=== PATIENT | female | born 1960 | race Caucasian/White ===

== ENCOUNTER 2016-05-30 | Outpatient (CLI) | payer MEDICAID | END 2016-05-30 19:54 | disposition short-term general hospital (02) | DX: M54.5 Low back pain (principal) | CPT/HCPCS: A0425; A0427 ==

== ENCOUNTER 2016-07-08 10:22 | Outpatient (CLI) | payer MEDICAID | END 2016-07-08 10:23 | disposition home or self-care (01) | DX: M16.12 Unilateral primary osteoarthritis, left hip (principal) ==

== ENCOUNTER 2017-01-12 08:00 | Outpatient (CLI) | payer MEDICAID ==
[2017-01-14 11:31] LABS: TEST RESULT REPORT (())
== END 2017-01-12 08:01 | disposition home or self-care (01) ==
LOC: LAB.R 08:00
PROVIDERS: ATTEND Nurse Practitioner Gerontology
DX: R19.7 Diarrhea, unspecified (principal)
CPT/HCPCS: 81599; 83630; 87045; 87046; 87329; 87338; 87493

== ENCOUNTER 2017-02-01 13:43 | Outpatient (CLI) | payer MEDICAID ==
--- NOTE | 2017-02-01 15:41 | Ultrasound Report ---
COMPLETE ABDOMINAL ULTRASOUND: 02/01/2017 CLINICAL INDICATION: Pain, hematuria. TECHNIQUE: Real-time scanning was performed with telecommunications sales representative static images obtained. FINDINGS: The liver measures 14.8 cm. Hepatic echotexture appears normal. No intrahepatic biliary di latation is present. The common bile duct measures 6 mm. The gallbladder is normal, as is the pancrea s. The spleen measures 9.2 cm, and demonstrates normal echotexture. The kidneys are unremarkable, wit h the right measuring 10.9 cm and the left measuring 10.7 cm. The abdominal aorta is normal in calibe r. The inferior vena cava is unremarkable. No free fluid is present. IMPRESSION: NORMAL ABDOMINAL ULTRASOUND. JOB #: [id number] EXT JOB #:[id number]
== END 2017-02-01 13:44 | disposition home or self-care (01) ==
LOC: DI 13:43
PROVIDERS: ATTEND Nurse Practitioner Gerontology
DX: R10.9 Unspecified abdominal pain (principal)
CPT/HCPCS: 76700

== ENCOUNTER 2017-02-02 14:31 | Outpatient (CLI) | payer MEDICAID ==
--- NOTE | 2017-02-03 09:53 | Ultrasound Report ---
BLADDER ULTRASOUND: 02/03/2017 CLINICAL INDICATION: Pain, hematuria. TECHNIQUE: Real-time scanning was performed with reimbursement representative static images obtained. FINDINGS: Pre void, the urinary bladder measures 10.3 x 9.9 x 9.8 cm, yielding a prevoid volume of 5 26 mL. Bilateral ureteral jets are visualized. Postvoid residual is 10 mL. No focal bladder wall l esion is appreciated. IMPRESSION: NORMAL BLADDER ULTRASOUND. JOB #: [id number] EXT JOB #:
--- NOTE | 2017-02-03 14:01 | Ultrasound Report ---
PELVIC ULTRASOUND: 02/02/2017 CLINICAL INDICATION: Pain, hematuria. TECHNIQUE: Transabdominal pelvic ultrasound performed for global evaluation. Transvaginal pelvic ultr asound performed for detailed evaluation. Real-time scanning performed and static images obtained. COMPARISON: 08/03/2014. FINDINGS: The uterus is anteverted, measuring 6.5 x 3.3 x 3.0 cm. Fundal leiomyoma is stable, measur ing 3.6 cm in maximal diameter. A second, smaller leiomyoma is noted in the posterior myometrium, brett suring 1.3 x 0.9 x 0.8 cm. The endometrium is atrophic, measuring 1 mm. The right ovary was not confi dently identified on transabdominal or transvaginal scanning. The left ovary is unremarkable, measuri ng 1.3 x 1.0 x 0.9 cm. No free fluid is present. IMPRESSION: STABLE FUNDAL LEIOMYOMA. SMALLER POSTERIOR INTRAMURAL LEIOMYOMA. NO ADNEXAL MASS. JOB #: [id number] EXT JOB #:[id number]
== END 2017-02-02 14:32 | disposition home or self-care (01) ==
LOC: DI 14:31
PROVIDERS: ATTEND Nurse Practitioner Gerontology
DX: D25.9 Leiomyoma of uterus, unspecified (principal); R31.9 Hematuria, unspecified; N93.9 Abnormal uterine and vaginal bleeding, unspecified
CPT/HCPCS: 76770; 76830; 76856; 76857

== ENCOUNTER 2017-04-01 14:51 | Outpatient (CLI) | payer MEDICAID ==
[2017-04-01 19:40] LABS: HCT - HEMATOCRIT 44.3 % (37.0-47.0); MEAN CORPUSCULAR HEMOGLOBIN 30.8 pg (27.0-31.0); MEAN CORPUSCULAR HGB CONC 33.7 g/dL (32.0-36.0); MEAN CORPUSCULAR VOLUME 91.3 fL (81.0-99.0); MEAN PLATELET VOLUME 7.8 fL (7.9-10.8); RED BLOOD COUNT 4.86 10^6/uL (4.20-5.40); RED CELL DISTRIBUTION WIDTH 13.8 % (12.0-15.0); WHITE BLOOD COUNT 7.2 x10^3/uL (4.8-10.8)
== END 2017-04-01 14:52 | disposition home or self-care (01) ==
LOC: LAB.N 14:51
PROVIDERS: ATTEND Physician Assistant Medical
DX: M79.643 Pain in unspecified hand (principal); R22.33 Localized swelling, mass and lump, upper limb, bilateral
CPT/HCPCS: 36415; 85651; 86038; 86140; 86200; 86430

== ENCOUNTER 2017-05-11 12:47 | Outpatient (CLI) | payer MEDICAID ==
[2017-05-11] MEDS ORDERED: GADOBUTROL 7.5 MMOL/7.5 ML VIAL ONE (13:08)
[2017-05-11] MEDS ORDERED: GADOBUTROL 7.5 MMOL/7.5 ML VIAL IVP ONE (13:43)
--- NOTE | 2017-05-11 16:01 | MRI Report ---
EXAM: MRI LUMBAR SPINE WITHOUT AND WITH CONTRAST EXAM DATE: 05/11/2017 01:50 PM. CLINICAL HISTORY: Right-sided sciatica. Spondylosis. Previous lumbar spine surgery. Previous postoper ative infection. COMPARISONS: Lumbar spine MRI from 11/11/2010. TECHNIQUE: Multiplanar, multisequence T1-weighted and fluid-sensitive sequences of the lumbar spine f rom T12 to S1 before and after administration of intravenous contrast. Other: None. IV contrast: 7.5 cc Gadavist. FINDINGS: Spinal Cord: The conus terminates at T12-L1. The conus medullaris and cauda equina are unremarkable. Alignment: New grade 1 anterolisthesis at L4-L5 by approximately 6 mm. Bone Marrow: Five ury-pue-ktlnyqq lumbar vertebral bodies are assumed. There is an approximately 0.8 x 0.4 cm T2 hyperintense, T1 isointense to hypointense, enhancing focus at the right L4 superior vanna cular process which is new since the previous study. The previously seen 9 x 5 mm T2 hyperintense foc us within the left L5 superior articular process is no longer seen. No gross fractures. No evidence o f osteomyelitis. Disk Levels/Facets: L5-S1: Minimal disk bulge with posterior annular fissure. No bony stenosis. Moderate to severe narrow ing of the thecal sac at the L5-S1 and S1 levels and moderate narrowing of the thecal sac at the L5 l evel which is new since the previous study. L4-L5: Moderate disk space narrowing. Minimal disk bulge. Previous laminectomy and partial facetectom ies. Enhancing tissue at the operative site. No abscess. Mild to moderate right and moderate left for aminal stenoses. The degree of left foraminal stenosis has increased since the previous study. Modera te right facet joint effusion. L3-L4: Minimal disk bulge. Moderate ligamentum flavum thickening. Moderate facet arthropathy. Mild to moderate canal stenosis which has increased since the previous study. L2-L3: Unremarkable. L1-L2: Unremarkable. T12-L1: Unremarkable. Spinal Canal: Mild thickening and enhancement of the thecal sac at the L4, L5, and S1 levels. No epid ural abscess. No enhancing masses. Musculature: Normal. No edema, abnormal enhancement, or fatty atrophy. Other: The visualized retroperitoneum is unremarkable. IMPRESSION: 1. Grade 1 anterolisthesis at L4-L5 which is new since the previous study. 2. Postoperative changes at L4-L5 as described above. Enhancing tissue at the operative site. Mild to moderate right and moderate left foraminal stenoses. The degree of left foraminal stenosis has incre ased since the previous study. 3. Moderate to severe narrowing of the thecal sac at the L5-S1 and S1 levels and moderate narrowing o f the thecal sac at the L5 level which is new since the previous study. Mild to moderate canal stenos is at L3-L4 which has increased since the previous study. 4. Mild thickening and enhancement of the thecal sac from L4 to S1 which may be postoperative and/or inflammatory in etiology. 5. A 0.4 x 0.8 cm enhancing focus at the right L4 superior articular process which is new since the p revious study. This may represent an inflamed cyst. Comment: The following findings are so common in adults without low back pain that while we report th eir presence, they must be interpreted with caution and in the context of the clinical situation. (Re liz Benitez et al, Spine 2001) Prevalence of findings in patients without low back pain: Disk degeneration (any evidence): 92% Disk desiccation/T2 signal loss: 83% Disk height loss: 56% Disk bulge: 64% Disk protrusion: 32% Annular tear/high intensity zone: 38% [facility] Referring Provider Line: [phone] SITE ID: [id number]
== END 2017-05-11 12:48 | disposition home or self-care (01) ==
LOC: DI 12:47
PROVIDERS: ATTEND Family Medicine
DX: M47.896 Other spondylosis, lumbar region (principal); M51.36 Other intervertebral disc degeneration, lumbar region; M47.817 Spondylosis without myelopathy or radiculopathy, lumbosacral region; M43.16 Spondylolisthesis, lumbar region
CPT/HCPCS: 72158; A9585

== ENCOUNTER 2017-05-19 08:00 | Outpatient (CLI) | payer MEDICAID ==
[2017-05-19 19:24] LABS: CALCIUM 9.3 mg/dL (8.5-10.3); CREATININE 0.9 mg/dL (0.4-1.0)
== END 2017-05-19 08:01 ==
LOC: LAB.N 08:00
PROVIDERS: ATTEND Family Medicine
DX: M54.31 Sciatica, right side (principal)
CPT/HCPCS: 36415; 80048

== ENCOUNTER 2017-07-28 08:00 | Outpatient (CLI) | payer MEDICAID ==
[2017-07-28 12:36] LABS: CALCIUM 8.8 mg/dL (8.5-10.3); CREATININE 0.8 mg/dL (0.4-1.0)
[2017-07-28 12:45] LABS: BILIRUBIN,URINE NEGATIVE (NEGATIVE); GLUCOSE, URINE (UA) NEGATIVE (NEGATIVE); KETONES,URINE (UA) NEGATIVE (NEGATIVE); LEUKOCYTE ESTERASE, URINE NEGATIVE (NEGATIVE); NITRITE,URINE NEGATIVE (NEGATIVE); OCCULT BLOOD,URINE MODERATE (NEGATIVE); PROTEIN,URINE NEGATIVE (NEGATIVE); UROBILINOGEN,URINE 0.2 (NORMAL) E.U./dL (NORMAL)
[2017-07-28 13:03] LABS: BACTERIA,URINE Few /HPF (None Seen); CLARITY,URINE CLEAR (CLEAR); EPITHELIAL CELLS,UR FEW Transitional /HPF (<= Few); MUCUS,URINE Moderate Strands; SQUAMOUS EPITHELIAL CELL,UR FEW Squamous (<= Few)
== END 2017-07-28 08:01 ==
LOC: LAB.N 08:00
PROVIDERS: ATTEND Nurse Practitioner
DX: R11.0 Nausea (principal); R10.9 Unspecified abdominal pain; R19.7 Diarrhea, unspecified; R31.9 Hematuria, unspecified
CPT/HCPCS: 36415; 80048; 81001; 87086

== ENCOUNTER 2017-08-04 08:49 | Outpatient (CLI) | payer MEDICAID ==
[2017-08-04 13:18] LABS: CALCIUM 9.1 mg/dL (8.5-10.3); CREATININE 0.8 mg/dL (0.4-1.0)
== END 2017-08-04 08:50 | disposition home or self-care (01) ==
LOC: LAB.N 08:49
PROVIDERS: ATTEND Nurse Practitioner
DX: E87.6 Hypokalemia (principal); E87.1 Hypo-osmolality and hyponatremia
CPT/HCPCS: 36415; 80048

== ENCOUNTER 2017-08-06 09:15 | Outpatient (CLI) | payer MEDICAID ==
[2017-08-06] MEDS ORDERED: SINCALIDE 5 MCG VIAL ONE (10:27)
[2017-08-06] MEDS ORDERED: SINCALIDE IV ONE (11:00)
[2017-08-06] MEDS ORDERED: SODIUM CHLORIDE 0.9% IV ONE (11:00)
--- NOTE | 2017-08-06 13:32 | Nuclear Medicine Report ---
EXAM: HEPATOBILIARY SCAN WITH CCK/KINEVAC ADMINISTRATION EXAM DATE: 08/06/2017 12:15 PM. CLINICAL HISTORY: NAUSEA, DIARRHEA, ABDOMINAL PAIN, HEMATURIA. COMPARISON: 02/01/2017. TECHNIQUE: Following the intravenous administration of 5.3 mCi of Tc99m Mebrofenin, a hepatobiliary s can was done centered on the liver and gallbladder in multiple sequential images and projections. Following the intravenous administration of 1.41 mcg of CCK/ Kinevac over the course of approximately 60 minutes, dynamic imaging was done and the gallbladder ejection fraction was calculated. FINDINGS: Normal extraction of tracer from the blood pool indicating normal hepatocellular function. The liver size and shape is grossly within normal limits. There is activity visualized within the bile ducts, gallbladder, and small bowel within the first mitra r. With CCK administration, the gallbladder demonstrates an effective contraction. The gallbladder eject ion fraction is calculated to be 91%, well above the lower limit of normal of 38% for a 60-minute inj ection. No evidence of enteric reflux into the stomach. No significant collection of tracer remaining in the common bile duct by the end of the study. IMPRESSION: 1. Patent cystic duct. 2. Patent common bile duct. 3. Negative for acute or chronic cholecystitis. 4. No enterogastric bile reflux. 5. Gallbladder ejection fraction of 91%. [facility] Referring Provider Line: [phone] SITE ID: [id number]
== END 2017-08-06 09:16 | disposition home or self-care (01) ==
LOC: DI 09:15
PROVIDERS: ATTEND Nurse Practitioner
DX: R11.0 Nausea (principal); R19.7 Diarrhea, unspecified; R10.9 Unspecified abdominal pain; R31.9 Hematuria, unspecified
CPT/HCPCS: 78227; A9537; J7040

== ENCOUNTER 2017-12-02 16:36 | Outpatient (CLI) | payer MEDICAID ==
--- NOTE | 2017-12-03 15:32 | XRAY Report ---
Procedure Date: 12/02/2017 Accession Number: [id number] / [id number] Procedure: XR - Lumbar Spine Complete CPT Code: FULL RESULT: EXAM: Lumbar Spine Complete DATE: 12/02/2017 5:19 PM CLINICAL HISTORY: SPINAL STENOSIS OF LUMBAR REGION,UNSPECIFIED COMPARISON: MRI of the lumbar spine 05/11/2017. TECHNIQUE: 2 views. FINDINGS: Alignment: Interval increase in grade 1 anterolisthesis of L4 on L5, approximately 1.1 cm, when accounting for differences in technique. This is likely due to a pars defect at L4. Bones: Five gvq-rua-frqgpxh lumbar vertebral bodies are present. No fractures or bone lesions. Disks: Normal. Disk heights are maintained. Facets: Facet arthropathy at L4 and L5. Sacroiliac Joints: Unremarkable. Soft Tissues: Soft tissue calcification projecting over the pelvis is felt to most likely represent a fibroid. IMPRESSION: Interval progression of grade 1 anterolisthesis of L4 on L5 presumably due to spondylolysis. [facility]
== END 2017-12-02 16:37 | disposition home or self-care (01) ==
LOC: DI 16:36
PROVIDERS: ATTEND Neurological Surgery
DX: M48.061 Spinal stenosis, lumbar region without neurogenic claudication (principal); M43.06 Spondylolysis, lumbar region
CPT/HCPCS: 72110

== ENCOUNTER 2019-06-05 16:21 | Emergency (ER) | payer MEDICAID ==
[2019-06-05] MEDS ORDERED: KETOROLAC 60 MG/2 ML VIAL IM STA (17:01)
[2019-06-05] MEDS ORDERED: predniSONE 20 MG TABLET PO STA (17:02)
--- NOTE | 2019-06-05 17:05 | ED Physician Documentation ---
PD HPI BACK PAIN - Stated complaint Stated Complaint: Chronic Back Px - Chief complaint Chief Complaint: Back Pain - History obtained from History obtained from: Patient - History of Present Illness Timing - onset: Other (59-year-old woman with chronic back pain, she had a surgery a few years ago that left her even worse. It sounds like it was probably a laminectomy. She is in physical therapy for same and take gabapentin and meloxicam. Over the last few days her pain is been much worse than normal, in the low back with a shooting pain down the right buttock. She has chronic weakness and numbness of the legs, nothing new. No saddle anesthesia or fevers.) Review of Systems Constitutional: denies: Fever, Chills Throat: reports: Reviewed and negative Cardiac: reports: Reviewed and negative Respiratory: reports: Reviewed and negative PD PAST MEDICAL HISTORY - Present Medications Home Medications: Ambulatory Orders Medication Instructions Recorded Confirmed Hydrocodone/Acetaminophen 1 - 2 each PO Q6H PRN #14 tablet 06/05/19 [Hydrocodon-Acetaminophen 5-325] predniSONE [Deltasone] 20 mg PO [id number] #21 tab 06/05/19 - Allergies Allergies/Adverse Reactions: Allergies Allergy/AdvReac Type Severity Reaction Status Date / Time No Known Drug Allergies Allergy Verified 06/05/19 16:31 PD ED PE NORMAL - Vitals Vital signs reviewed: Yes - General General: Alert and oriented X 3, No acute distress - Abdomen Abdomen: Normal bowel sounds, Soft, Non tender - Back Back: No spinal TTP, Other (Mildly diminished sensation in left thigh compared to the right, equal reflexes throughout and strength throughout. Normal gait.) - Derm Derm: Normal color, Warm and dry - Extremities Extremities: No edema, No calf tenderness / cord - Neuro Neuro: Alert and oriented X 3, Normal speech Results - Vitals Vitals: Vital Signs - 24 hr 06/05/19 16:31 Temperature 36.8 C Heart Rate 73 Respiratory 14 Rate Blood Pressure 154/93 H O2 Saturation 98 Oxygen O2 Source Room air PD MEDICAL DECISION MAKING - ED course ED course: 59-year-old woman with chronic low back pain and exacerbation of same. She received Toradol and prednisone here and a prednisone taper and a few hy drocodone pending follow-up. She was sent over because she mentioned something to the physical therapist about not wanting to live anymore but she denies suicidal ideation or plan. Departure - Departure Disposition: 01 Home, Self Care Clinical Impression: Acute exacerbation of chronic low back pain Condition: Good Record reviewed to determine appropriate education?: Yes Instructions: ED Neck Back Pain General Prescriptions: Hydrocodone/Acetaminophen [Hydrocodon-Acetaminophen 5-325] 1 - 2 each PO Q6H PRN #14 tablet PRN Reason: pain predniSONE [Deltasone] 20 mg PO [id number] #21 tab Comments: If you would like to see a spine surgeon again, [address] Gallo at the [facility]. Phone number is [phone]. Call your doctor to arrange a follow-up appointment, make the next available appointment. In the interim, return anytime if worse or if new symptoms develop. Do not drink or drive while taking narcotic pain medication. Note that many narcotic pain relievers also contain Tylenol/acetaminophen. Please ensure that your total dose of acetaminophen from all sources does not exceed 3 g (3000 mg) per day. You may get constipated while on this medication. Take a stool softener such as Colace twice a day while you are on it. Also add an exut-lxu-gxwezia laxative such as senna or MiraLAX on any day that you do not have a bowel movement. If you received a narcotic pain medication or sedative while in the emergency department, do not drive for the next 24 hours.
[2019-06-05 17:37] VITALS: BP 160/95
== END 2019-06-05 17:43 | disposition home or self-care (01) ==
LOC: ED 16:21
DX: M54.5 Low back pain (principal); G89.29 Other chronic pain
CPT/HCPCS: 96372; 99283; 99284; J7512

== ENCOUNTER 2022-10-26 14:09 | Outpatient (CLI) | payer MEDICAID ==
--- NOTE | 2022-10-27 10:38 | XRAY Report ---
PROCEDURE: Foot 3 View RT INDICATIONS: CONTUSION OF RIGHT FOOT TECHNIQUE: 3 views of the foot were acquired. COMPARISON: None. FINDINGS: Bones: No fractures or dislocations. No suspicious bony lesions. Soft tissues: No suspicious soft tissue calcifications or masses. IMPRESSION: No acute osseous abnormality. If clinical symptoms persist, consider a follow-up exam in 7-10 days. Reviewed by: Maureen Nash MD on 10/27/2022 10:37 AM PDT Approved by: Maureen Nash MD on 10/27/2022 10:37 AM PDT Station ID: [id number]
== END 2022-10-26 23:59 | disposition home or self-care (01) ==
LOC: DI.N 14:09
PROVIDERS: ATTEND Physician Assistant Medical
DX: S90.31XA Contusion of right foot, initial encounter (principal)

== ENCOUNTER 2022-12-01 08:00 | Outpatient (CLI) | payer MEDICAID ==
[2022-12-01 18:09] LABS: BILIRUBIN,URINE NEGATIVE (NEGATIVE); GLUCOSE, URINE (UA) NEGATIVE (NEGATIVE); KETONES,URINE (UA) NEGATIVE (NEGATIVE); LEUKOCYTE ESTERASE, URINE NEGATIVE (NEGATIVE); NITRITE,URINE NEGATIVE (NEGATIVE); OCCULT BLOOD,URINE SMALL (NEGATIVE); PH,URINE 5.5 PH (5.0-7.5); PROTEIN,URINE NEGATIVE (NEGATIVE); UROBILINOGEN,URINE 0.2 (NORMAL) E.U./dL (NORMAL)
[2022-12-01 18:14] LABS: CLARITY,URINE CLEAR (CLEAR)
[2022-12-01 18:40] LABS: BACTERIA,URINE Rare /HPF (None Seen); SQUAMOUS EPITHELIAL CELL,UR RARE Squamous (<= Few); WBC,URINE 0-3 /HPF (0-5)
== END 2022-12-01 23:59 | disposition home or self-care (01) ==
LOC: LAB.WCP 08:00
PROVIDERS: ATTEND Nurse Practitioner Family
DX: R31.9 Hematuria, unspecified (principal); R35.0 Frequency of micturition
CPT/HCPCS: 81001; 87086

== ENCOUNTER 2022-12-03 23:22 | Outpatient (CLI) | payer MEDICAID | END 2022-12-03 23:59 | disposition critical access hospital (66) | LOC: EMS 23:22 | DX: R52 Pain, unspecified (principal); R25.2 Cramp and spasm; R20.2 Paresthesia of skin | CPT/HCPCS: A0425; A0429; A0999 ==

== ENCOUNTER 2022-12-04 00:12 | Emergency (ER) | payer MEDICAID, OTHER ==
--- OUTSIDE RECORDS SUMMARY | 2022-12-04 00:24 | EXTERNAL MEDICAL SUMMARY RPT | Continuity of Care Document ---
Author Name Unknown Address [address] [place] [address] Phone Organization [facility] Address [address] [place] [address] Phone Care Team Providers Care Director Immunology Name Role Phone Dandre Jay Unavailable Unavailable Allergies and Intolerances date description facility reaction severity (no date) Mild [facility] (no reaction) (no se verity) (no date) amitriptyline [facility] (no reaction) (no severity) (no date) aspirin [facility] (no reaction) (no se verity) (no date) codeine [facility] (no reaction) (no se verity) Medications date description facility 2022-11-23 00:00 Cephalexin [facility] Problems date description facility 2022-11-23 00:00 Urinary tract infection [facility] Procedures date description facility 2022-11-23 00:00 Computed tomography of head or brain without contrast [facility] Results/Labs test date facility value unit notes Social History date description facility 2022-11-23 00:00 Smokes tobacco daily (finding) [facility] Vital Signs date measurement value units 2022-11-23 00:00 BMI 23.7 kg/m2 2022-11-23 00:00 BP_diastolic 100 mmHg 2022-11-23 00:00 BP_systolic 160 mmHg 2022-11-23 00:00 heart_rate 115 /min 2022-11-23 00:00 height_metric 157.48 cm 2022-11-23 00:00 height_standard 62 in 2022-11-23 00:00 o2_saturation 98 % 2022-11-23 00:00 respiration_rate 18 /min 2022-11-23 00:00 temperature_metric 36.5 C 2022-11-23 00:00 temperature_standard 97.7 F 2022-11-23 00:00 weight_metric 58.87 kg 2022-11-23 00:00 weight_standard 129.79 lb
--- NOTE | 2022-12-04 01:35 | ED Physician Documentation ---
History of Present Illness - Stated complaint Stated Complaint: BODY PX - Chief complaint Chief Complaint: General - History obtained from History obtained from: Patient - Additonal information Additional information: HPI from patient. Patient is a rather scattered historian. Patient tells me she has pain. When I ask her where she has pain, she says she has numbness of both of her arms that has been going on for many weeks. I reiterate the question, which is where she is having pain. She says the numbness also includes burning of both the arms. She then says she also has pain in both of her legs. She says the leg pain is sciatica. I asked if it is 1 side or the other and she says it seems to be more on the right leg than the left. She denies any back pain. It is unclear after further discussion whether she has the diagnosis of sciatica or if she is making this diagnosis on her own. She does repeatedly say her diagnoses include fibromyalgia.She denies weakness, but says that due to pain being worse with movement, she has been less ambulatory over the past 3 days, but is able to get around with a walker. She says she takes gabapentin for her pain, as well as Aleve and meloxicam, which have been providing decreasing relief for the past few days.Patient says she was seen in urgent care clinic last week for UTI symptoms and was prescribed Keflex. Review of Systems Constitutional: reports: Reviewed and negative Cardiac: reports: Reviewed and negative Respiratory: reports: Reviewed and negative GI: reports: Reviewed and negative : denies: Dysuria, Frequency, Incontinent Musculoskeletal: reports: Extremity pain, Joint pain, Pain with weight bearing. denies: Neck pain, Back pain, Extremity swelling Neurologic: reports: Headache. denies: Focal weakness, Numbness PD PAST MEDICAL HISTORY - Past Medical History Past Medical History: Yes Psych: Depression, Anxiety Musculoskeletal: Osteoarthritis - Past Surgical History Past Surgical History: Yes Ortho: Spine surgery - Present Medications Home Medications: Ambulatory Orders Medication Instructions Recorded Confirmed Ascorbic Acid [Vitamin C] 1,000 mg PO DAILY 12/04/22 12/04/22 Baclofen [Lioresal] 10 mg PO BID #30 tablet 12/04/22 Gabapentin [Neurontin] 1,200 mg PO TID 12/04/22 12/04/22 HYDROcod/ACETAM 5/325 [Gage 5/325] 1 ea PO Q6H PRN #18 tablet 12/04/22 Meloxicam [Mobic] 7.5 mg PO BID 10 Days #20 tablet 12/04/22 Vitamin B Complex 1 each PO DAILY 12/04/22 12/04/22 - Allergies Allergies/Adverse Reactions: Allergies Allergy/AdvReac Type Severity Reaction Status Date / Time No Known Drug Allergies Allergy Verified 12/04/22 00:15 - Social History Does the pt smoke?: Yes Smoking Status: Current every day smoker - Immunizations Immunizations are current?: Yes PD ED PE NORMAL - Vitals Vital signs reviewed: Yes - General General: Alert and oriented X 3, Well developed/nourished, Other (Appears very anxious throughout history and physical. She is somewhat tangential and scattered on H&P, often requiring refocusing on the questions being asked.) - HEENT HEENT: PERRL, EOMI, Moist mucous membranes - Neck Neck: Supple, no meningeal sign - Cardiac Cardiac: RRR, No murmur - Respiratory Respiratory: No respiratory distress, Clear bilaterally - Abdomen Abdomen: Soft, Non tender, Non distended - Derm Derm: Normal color, Warm and dry, No rash - Extremities Extremities: No tenderness to palpate, Normal ROM s pain, No edema - Neuro Neuro: Alert and oriented X 3, forensic science examiner 2-12 intact, No motor deficit, No sensory deficit, Normal speech Eye Opening: Spontaneous Motor: Obeys Commands Verbal: Oriented GCS Score: 15 Results - Vitals Vitals: Oxygen O2 Source Room air - Labs Labs: Laboratory Tests 12/04/22 12/04/22 12/04/22 06:57 06:57 06:57 WBC 8.0 RBC 4.53 Hgb 13.4 Hct 41.7 MCV 92.1 MCH 29.6 MCHC 32.1 RDW 12.8 Plt Count 369 MPV 8.7 Neut # (Auto) 3.4 Lymph # (Auto) 3.6 H Riley # (Auto) 0.7 Eos # (Auto) 0.2 Baso # (Auto) 0.1 Absolute Nucleated RBC 0.00 Nucleated RBC % 0.0 Sodium 140 Potassium 4.2 Chloride 108 Carbon Dioxide 30 Anion Gap 2.0 L BUN 10 Creatinine 0.7 Estimated GFR (MDRD) 85 L Glucose 99 Calcium 9.4 Magnesium 1.7 Total Bilirubin 0.4 AST 15 ALT 15 Alkaline Phosphatase 63 Total Creatine Kinase 99 C-Reactive Protein Total Protein 6.0 L Albumin 3.6 Globulin 2.4 Albumin/Globulin Ratio 1.5 Lipase 37 12/04/22 06:57 WBC RBC Hgb Hct MCV MCH MCHC RDW Plt Count MPV Neut # (Auto) Lymph # (Auto) Riley # (Auto) Eos # (Auto) Baso # (Auto) Absolute Nucleated RBC Nucleated RBC % Sodium Potassium Chloride Carbon Dioxide Anion Gap BUN Creatinine Estimated GFR (MDRD) Glucose Calcium Magnesium Total Bilirubin AST ALT Alkaline Phosphatase Total Creatine Kinase C-Reactive Protein 0.5 Total Protein Albumin Globulin Albumin/Globulin Ratio Lipase PD Medical Decision Making - ED course Complexity details: reviewed old records, reviewed results, re-evaluated patient, considered differential, d/w patient ED course: given toradol 60mg IM and 2.0 mg PO lorazepam (for both muscle relaxant property and anxiolysis). She subsequently slept for several hours. Given that she seems to be describing exacerbation of ongoing/chronic discomfort, testing was not ordered until very late in stay when she woke up towards the end of my shift and was again complaining of severe pain that was diffuse throughout her body. My initial plan was to discharge patient when she woke up, but, given recurrence of symptoms. We next tried to get patient to stand at bedside, and it was questionable whether she was able to support her own weight (at times she appeared to be able to do so with the walker, and that at other times she was asking to be held up). Thus, care patient is turned over to the oncoming physician (Dr. Sow) at end of my shift, with some basic blood tests pending results. Departure - Departure Disposition: 01 Home, Self Care Clinical Impression: Acute exacerbation of chronic low back pain, Muscle pain, fibromyalgia Prescriptions: Baclofen [Lioresal] 10 mg PO BID #30 tablet Meloxicam [Mobic] 7.5 mg PO BID 10 Days #20 tablet HYDROcod/ACETAM 5/325 [Gage 5/325] 1 ea PO Q6H PRN #18 tablet PRN Reason: Pain Comments: Continue with your usual gabapentin. Stay well-hydrated. Add Tylenol 500 mg 4 times daily for pain. We can also add baclofen muscle relaxant and meloxicam anti-inflammatory as directed twice daily. This can help for both your low back pain/sciatic as well as the fibromyalgia. Add hydrocodone every 6 hours if needed for worse pain. Follow-up with your primary care regarding ordering/referrals for any other maryellen ts or treatments such as MRI of the low back, physical therapy, rheumatoid consults etc. that it sounds like our in progress. I sent your prescription to [facility] pharmacy. Activity as tolerated. Return to the ER as needed. I am prescribing a short course of narcotic pain medication for you. These are potentially dangerous and addictive medications that should be used carefully. These medications may constipate you. Take an vvrp-upi-jdczwhc stool softener such as docusate twice daily with plenty of water while taking these medications. If you go 24 hours without a bowel movement, take zaje-mwv-sbksdtm MiraLAX, per package instructions. Do not drink or drive while taking these medications. If you received narcotic or sedating medications while in the emergency department do not drive for 24 hours. Store this medication in a safe, secure place and out of reach of children. It is a violation of federal law to give or sell this medication to another person or to use in a manner other than prescribed. The ED will not refill narcotic prescriptions, including prescriptions lost or stolen. You can dispose of unwanted medications at the [facility]'s office or at several pharmacies such as [facility]. Forms: PCP List Discharge Date/Time: 12/04/22 12:17
[2022-12-04] MEDS ORDERED: KETOROLAC 60 MG/2 ML VIAL IM STA (01:47)
[2022-12-04] MEDS ORDERED: LORazepam 0.5 MG TABLET PO STA (01:48)
[2022-12-04 07:02] LABS: BASOPHILS # (AUTO) 0.1 10^3/uL (0.0-0.1); BASOPHILS % (AUTO) 1.3 %; EOSINOPHILS # (AUTO) 0.2 10^3/uL (0.0-0.7); EOSINOPHILS % (AUTO) 2.4 %; HCT - HEMATOCRIT 41.7 % (37.0-47.0); HGB - HEMOGLOBIN 13.4 g/dL (12.0-16.0); LYMPHOCYTES # (AUTO) 3.6 10^3/uL (1.5-3.5); LYMPHOCYTES % (AUTO) 45.6 %; MEAN CORPUSCULAR HEMOGLOBIN 29.6 pg (27.0-31.0); MEAN CORPUSCULAR HGB CONC 32.1 g/dL (32.0-36.0); MEAN CORPUSCULAR VOLUME 92.1 fL (81.0-99.0); MEAN PLATELET VOLUME 8.7 fL (7.9-10.8); MONOCYTES # (AUTO) 0.7 10^3/uL (0.0-1.0); MONOCYTES % (AUTO) 8.5 %; NEUTROPHILS # (AUTO) 3.4 10^3/uL (1.5-6.6); NEUTROPHILS % (AUTO) 41.9 %; PLT - PLATELET COUNT 369 10^3/uL (130-450); RED BLOOD COUNT 4.53 10^6/uL (4.20-5.40); RED CELL DISTRIBUTION WIDTH 12.8 % (12.0-15.0)
[2022-12-04 07:20] LABS: ALBUMIN 3.6 g/dL (3.2-5.5); ALBUMIN/GLOBULIN RATIO 1.5 (1.0-2.2); BILIRUBIN,TOTAL 0.4 mg/dL (0.2-1.0); CALCIUM 9.4 mg/dL (8.5-10.3); CREATININE 0.7 mg/dL (0.6-1.3); POTASSIUM 4.2 mmol/L (3.5-4.5)
[2022-12-04 07:54] LABS: MAGNESIUM 1.7 mg/dL (1.7-2.3)
--- NOTE | 2022-12-04 08:45 | XRAY Report ---
PROCEDURE: Hip w/Pelvis 2-3V RT INDICATIONS: fall, hip pain TECHNIQUE: AP pelvis with lateral view(s) of the right hip(s). COMPARISON: None. FINDINGS: Bones: No fractures or dislocations. No evidence of avascular necrosis of femoral head. Mild to mode rate bilateral hip joint osteoarthritic changes are seen. Degenerative disc disease in visualized low er lumbar spine is also noted. No suspicious bony lesions. Soft tissues: Likely large uterine fibroid is seen in lower pelvis. IMPRESSION: No acute right hip fracture or dislocation. No evidence of avascular necrosis. Mild to moderate bilat eral hip joint osteoarthritis. Degenerative disc disease in lower lumbar spine. Incidentally noted of calcified uterine fibroids. Reviewed by: Joseluis Mc MD on 12/04/2022 8:44 AM PDT Approved by: Joseluis Mc MD on 12/04/2022 8:44 AM PDT Station ID: [id number]
[2022-12-04] MEDS ORDERED: HYDROmorphone 1 MG/ML CARPUJECT IM STA (09:54)
[2022-12-04] MEDS ORDERED: dexAMETHasone 4 MG TABLET PO STA (09:54)
[2022-12-04] MEDS ORDERED: GABAPENTIN 400 MG CAPSULE PO STA (09:56)
--- NOTE | 2022-12-04 12:02 | ED Physician Documentation ---
ED Addendum - Addendum Addendum: 12/04/22 11:59 The patient was still having diffuse muscle pains and low back pain. Exam of her lower extremities showed normal patellar reflexes and symmetric range of motion without any noted focal weakness. She had symmetric sensation to touch and pinprick. Her partner/significant other did arrive in the department this morning and states her primary care has been progressing a work-up to include imaging of the low back and back specialist as well as rheumatology referral. These reportedly are referrals in process. At this point a do not feel the patient meets criteria for emergent MRI as there is no symptoms to suggest acute caudal symptoms. She has had increased pain in her back over her baseline. She also has had increased fibromyalgia symptoms. She was seen recently for a bladder infection has been on antibiotics. Otherwise no acute illness apparent. Unclear the exacerbation of her fibromyalgia. At this point however we can augment her medications. She takes gabapentin 1200 mg 3 times daily. We can add a muscle relaxant and anti- inflammatories. I prescribed baclofen and meloxicam. To that add regular Tylenol 4 times daily or hydrocodone/acetaminophen for worse pains. At this point the patient is having less pain and is sleeping and seems more comfortable. Disposition: The patient is discharged home in stable condition Diagnoses: 1. Acute exacerbation of chronic low back pain 2. Diffuse muscle pains 3. Fibromyalgia
[2022-12-04 12:18] VITALS: BP 127/95
== END 2022-12-04 12:17 | disposition home or self-care (01) ==
LOC: EDUNIT# → ED 00:12
DX: M54.50 Low back pain, unspecified (principal); G89.29 Other chronic pain; M79.7 Fibromyalgia; F17.200 Nicotine dependence, unspecified, uncomplicated
CPT/HCPCS: 36415; 73502; 80053; 82550; 83690; 83735; 85025; 86140; 96372; 99284; A9270; J1170; J8540

== ENCOUNTER 2022-12-08 09:58 | Outpatient (CLI) | payer MEDICAID ==
--- NOTE | 2022-12-08 15:31 | XRAY Report ---
PROCEDURE: Lumbar Spine 2 View INDICATIONS: LUMBAR PAIN TECHNIQUE: 2 views of the lumbar spine were acquired. 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 Interval progression of disc heigh t loss at L4-L5, now severe, with discogenic sclerosis present in the subjacent endplates, having dev eloped since the previous study. 7 mm of anterolisthesis of L4 on L5. On the previous study, the ante rolisthesis measuring approximately 14 mm. There is lower lumbar facet arthropathy. No vertebral body compression fractures. No suspicious bony lesions. Soft tissues: Overlying bowel gas pattern is normal. No suspicious soft tissue calcifications. Prom inent calcified uterine fibroids. IMPRESSION: 1. No acute bony abnormality. 2. Progression of degenerative disc disease at L4-L5. Grade 1 anterolisthesis of L4 on L5. Lower lumb ar facet arthropathy. Reviewed by: Edy Malhotra MD on 12/08/2022 3:30 PM PDT Approved by: Edy Malhotra MD on 12/08/2022 3:30 PM PDT Station ID: [id number]
--- NOTE | 2022-12-08 15:45 | XRAY Report ---
PROCEDURE: Cervical Spine 2 View INDICATIONS: CERVICAL PAIN TECHNIQUE: 3 view(s) of the cervical spine were acquired. COMPARISON: None. FINDINGS: Bones: No fractures or dislocations to the T1 level. The lateral masses of C1 appear intact on the odontoid view. No suspicious bony lesions. Severe cervical spondylosis with prominent bilateral face t arthropathy, left greater than right. There is trace degenerative anterolisthesis of C3 on C4 and C 4 on C5. Uncovertebral joint osteophytes are suspected. Soft tissues: No prevertebral soft tissue swelling. IMPRESSION: Severe cervical spondylosis. Reviewed by: Edy Malhotra MD on 12/08/2022 3:43 PM PDT Approved by: Edy Malhotra MD on 12/08/2022 3:43 PM PDT Station ID: [id number]
== END 2022-12-08 09:59 | disposition home or self-care (01) ==
LOC: DI 09:58
PROVIDERS: ATTEND Internal Medicine Cardiovascular Disease
DX: M51.36 Other intervertebral disc degeneration, lumbar region (principal); M43.16 Spondylolisthesis, lumbar region; M47.812 Spondylosis without myelopathy or radiculopathy, cervical region

== ENCOUNTER 2022-12-14 11:53 | Outpatient (CLI) | payer MEDICAID | END 2022-12-14 23:59 | disposition short-term general hospital (02) | LOC: EMS 11:53 | DX: M54.50 Low back pain, unspecified (principal); G89.29 Other chronic pain | CPT/HCPCS: A0425; A0429; A0999 ==

== ENCOUNTER 2023-03-19 19:15 | Outpatient (CLI) | payer MEDICAID | END 2023-03-19 23:59 | disposition short-term general hospital (02) | LOC: EMS 19:15 | DX: R10.9 Unspecified abdominal pain (principal); M54.9 Dorsalgia, unspecified; T40.2X6A Underdosing of other opioids, initial encounter; Z91.138 Patient's unintentional underdosing of medication regimen for other reason | CPT/HCPCS: A0425; A0429; A0999 ==

== ENCOUNTER 2023-03-24 21:15 | Outpatient (CLI) | payer MEDICAID | END 2023-03-24 23:59 | disposition critical access hospital (66) | LOC: EMS 21:15 | DX: R06.00 Dyspnea, unspecified (principal); F41.9 Anxiety disorder, unspecified; I10 Essential (primary) hypertension | CPT/HCPCS: A0425; A0429; A0999 ==

== ENCOUNTER 2023-03-24 21:36 | Emergency (ER) | payer MEDICAID ==
--- NOTE | 2023-03-24 21:47 | ED Physician Documentation ---
PD HPI DYSPNEA - Stated complaint Stated Complaint: SOA - Chief complaint Chief Complaint: Resp - History obtained from History obtained from: Patient - Additional information Additional information: Patient is a 62-year-old female presenting for evaluation of feeling shortness of air since this evening. Patient states that she smokes cannabis and was about to use her vape. She does use tobacco. She started feeling short of air. She does have an albuterol inhaler and tried using this to see if it would help but it did not seem like it gave her any relief. Patient denies any recent illness with fever or cough. She did have lower back surgery 1 month ago and is continuing on oxycodone. She denies pain in the chest. No abdominal symptoms. Denies leg swelling or pain. Does not take any blood thinners. She does report feeling anxious and EMS put her on oxygen for comfort due to her anxiety but she was satting 100% on room air for them. Review of Systems Constitutional: denies: Fever Cardiac: denies: Chest pain / pressure Respiratory: reports: Dyspnea. denies: Cough GI: denies: Abdominal Pain Musculoskeletal: denies: Extremity swelling PD PAST MEDICAL HISTORY - Past Medical History Neuro: Peripheral neuropathy Psych: Depression, Anxiety Musculoskeletal: Osteoarthritis - Past Surgical History Past Surgical History: Yes Ortho: Spine surgery - Present Medications Home Medications: Ambulatory Orders Medication Instructions Recorded Confirmed Ascorbic Acid [Vitamin C] 1,000 mg PO DAILY 12/04/22 12/09/22 Baclofen [Lioresal] 10 mg PO BID #30 tablet 12/04/22 12/09/22 Gabapentin [Neurontin] 1,200 mg PO TID 12/04/22 12/09/22 HYDROcod/ACETAM 5/325 [[place] 5/325] 1 ea PO Q6H PRN #18 tablet 12/04/22 12/09/22 Meloxicam [Mobic] 7.5 mg PO BID 10 Days #20 tablet 12/04/22 12/09/22 Vitamin B Complex 1 each PO DAILY 12/04/22 12/09/22 dexAMETHasone [Decadron] 4 mg PO DAILY #7 tablet 12/09/22 tiZANidine [Zanaflex] 4 mg PO Q8H PRN #25 tablet 12/09/22 Apixaban [Eliquis] 10 mg ORAL BID 30 Days #74 tablet 03/25/23 - Allergies Allergies/Adverse Reactions: Allergies Allergy/AdvReac Type Severity Reaction Status Date / Time No Known Drug Allergies Allergy Verified 12/04/22 00:15 - Social History Does the pt smoke?: Yes Smoking Status: Current every day smoker - Immunizations Immunizations are current?: Yes PD ED PE NORMAL - General General: Alert and oriented X 3, No acute distress, Well developed/nourished - HEENT HEENT: Atraumatic, Moist mucous membranes, Pharynx benign - Neck Neck: Supple, no meningeal sign - Cardiac Cardiac: RRR, No murmur, Strong equal pulses - Respiratory Respiratory: No respiratory distress, Clear bilaterally - Abdomen Abdomen: Normal bowel sounds, Soft, Non tender, Non distended - Derm Derm: Warm and dry - Extremities Extremities: No edema, No calf tenderness / cord - Neuro Neuro: Normal speech Results - Vitals Vitals: Vital Signs - 24 hr 03/24/23 03/25/23 21:35 00:31 Temperature 36.6 C Heart Rate 84 78 Respiratory 23 18 Rate Blood Pressure 175/97 H 167/105 H O2 Saturation 99 98 Oxygen O2 Source Room air - EKG (time done) 1 EKG releavant findings:: EKG personally interpreted by author of this note. Relevant findings are: Rate 76, normal sinus rhythm, no STEMI - Labs Labs: Laboratory Tests 03/24/23 03/24/23 03/24/23 21:56 21:56 21:56 WBC 7.0 RBC 4.44 Hgb 12.8 Hct 40.7 MCV 91.7 MCH 28.8 MCHC 31.4 L RDW 13.4 Plt Count 351 MPV 8.4 Neut # (Auto) 3.2 Lymph # (Auto) 2.7 [place] # (Auto) 0.6 Eos # (Auto) 0.4 Baso # (Auto) 0.1 Absolute Nucleated RBC 0.00 Nucleated RBC % 0.0 D-Dimer 342.8 H Sodium 137 Potassium 4.0 Chloride 103 Carbon Dioxide 27 Anion Gap 7.0 BUN 10 Creatinine 0.6 Estimated GFR (MDRD) 101 Glucose 102 Calcium 9.2 Total Bilirubin 0.3 AST 12 ALT 7 L Alkaline Phosphatase 83 Troponin I High Sens 4.4 B-Natriuretic Peptide Total Protein 6.3 L Albumin 3.8 Globulin 2.5 Albumin/Globulin Ratio 1.5 Nasal Adenovirus (PCR) Nasal B. parapertussis DNA (PCR) Nasal Coronavir 229E PCR Nasal Coronavir HKU1 PCR Nasal Coronavir NL63 PCR Nasal Coronavir OC43 PCR Nasal Enterovir/Rhinovir PCR Nasal Influenza B PCR Nasal Influenza A PCR Nasal Parainfluen 1 PCR Nasal Parainfluen 2 PCR Nasal Parainfluen 3 PCR Nasal Parainfluen 4 PCR Nasal RSV (PCR) Nasal B.pertussis DNA PCR Nasal C.pneumoniae (PCR) Ariel Human Metapneumo PCR Nasal M.pneumoniae (PCR) Nasal SARS-CoV-2 (PCR) 03/24/23 03/24/23 21:56 22:12 WBC RBC Hgb Hct MCV MCH MCHC RDW Plt Count MPV Neut # (Auto) Lymph # (Auto) [place] # (Auto) Eos # (Auto) Baso # (Auto) Absolute Nucleated RBC Nucleated RBC % D-Dimer Sodium Potassium Chloride Carbon Dioxide Anion Gap BUN Creatinine Estimated GFR (MDRD) Glucose Calcium Total Bilirubin AST ALT Alkaline Phosphatase Troponin I High Sens B-Natriuretic Peptide 52 Total Protein Albumin Globulin Albumin/Globulin Ratio Nasal Adenovirus (PCR) NOT DETECTED Nasal B. parapertussis DNA (PCR) NOT DETECTED Nasal Coronavir 229E PCR NOT DETECTED Nasal Coronavir HKU1 PCR NOT DETECTED Nasal Coronavir NL63 PCR NOT DETECTED Nasal Coronavir OC43 PCR NOT DETECTED Nasal Enterovir/Rhinovir PCR NOT DETECTED Nasal Influenza B PCR NOT DETECTED Nasal Influenza A PCR NOT DETECTED Nasal Parainfluen 1 PCR NOT DETECTED Nasal Parainfluen 2 PCR NOT DETECTED Nasal Parainfluen 3 PCR NOT DETECTED Nasal Parainfluen 4 PCR NOT DETECTED Nasal RSV (PCR) NOT DETECTED Nasal B.pertussis DNA PCR NOT DETECTED Nasal C.pneumoniae (PCR) NOT DETECTED Ariel Human Metapneumo PCR NOT DETECTED Nasal M.pneumoniae (PCR) NOT DETECTED Nasal SARS-CoV-2 (PCR) NOT DETECTED PD Medical Decision Making - ED course Complexity details: reviewed results, re-evaluated patient, d/w patient ED course: Patient is a 62-year-old female presenting for evaluation of shortness of air starting tonight. She reports feeling heaviness with her breathing. No fever, cough. No chest pain. Did have back surgery about 1 month ago. Vital signs are stable and lung sounds are clear. Does smoke tobacco. EKG reviewed and do not see signs of acute ischemia. CBC, chemistries, troponin, BNP and D-dimer obtained and reviewed. D-dimer is slightly elevated even with age adjustment for the patient. X-ray of the chest which I reviewed is unremarkable for consolidation or effusion. CT angio of the chest was obtained to evaluate for pulmonary embolism. It is positive for bilateral segmental PEs with no signs of right heart strain. PESI score is 63. This places her in a very low risk category. Discussed anticoagulation with the patient and she is agreeable to this. We reviewed risks and benefits. She does not appear to have any co ntraindications to anticoagulation at this time. We will start her on Eliquis. Patient is aware that she needs to have follow-up with her primary care provider regarding our finding tonight as well as continuation of her anticoagulation. Patient is also counseled on concerning symptoms to return for. 2238 - Patient reports that she is feeling better. Reviewed work-up thus far including slightly elevated D-dimer even with age adjustment. Understands plan for CT angio of the chest to evaluate for pulmonary embolism as she has had recent surgery. She states that her breathing feels back to her baseline. Departure - Departure Disposition: 01 Home, Self Care Clinical Impression: Bilateral pulmonary embolism Condition: Stable Instructions: Embolism Pulmonary Dc Follow-Up: Kayce Ortiz ARNP [Primary Care Provider] - Prescriptions: Apixaban [Eliquis] 10 mg ORAL BID 30 Days #74 tablet Comments: On your testing today we found that you have blood clots present in both lungs. This is likely was a result of your recent surgery as having surgery and being less mobile does put you at increased risk for developing clots. Fortunately at this time it is not affecting your heart or your vital signs. I am starting you on a blood thinner called Eliquis and I have sent this prescription to [facility] in [place]. You will take it twice a day. Because all of the local area pharmacies are closed tomorrow for the I have given you 1 dose while you are here and have also sent you home with 1 dose that you should take around dinnertime on 03/25/2023 (). You do need to have close follow-up with your primary care provider to determine how long you need to be on this blood thinner. IMPRESSION: Bilateral segmental pulmonary emboli without right heart strain. Forms: PCP List Discharge Date/Time: 03/25/23 00:45
[2023-03-24 22:03] LABS: BASOPHILS # (AUTO) 0.1 10^3/uL (0.0-0.1); EOSINOPHILS # (AUTO) 0.4 10^3/uL (0.0-0.7); EOSINOPHILS % (AUTO) 5.8 %; HCT - HEMATOCRIT 40.7 % (37.0-47.0); HGB - HEMOGLOBIN 12.8 g/dL (12.0-16.0); LYMPHOCYTES # (AUTO) 2.7 10^3/uL (1.5-3.5); LYMPHOCYTES % (AUTO) 39.1 %; MEAN CORPUSCULAR HEMOGLOBIN 28.8 pg (27.0-31.0); MEAN CORPUSCULAR HGB CONC 31.4 g/dL (32.0-36.0); MEAN CORPUSCULAR VOLUME 91.7 fL (81.0-99.0); MEAN PLATELET VOLUME 8.4 fL (7.9-10.8); MONOCYTES # (AUTO) 0.6 10^3/uL (0.0-1.0); MONOCYTES % (AUTO) 7.9 %; NEUTROPHILS # (AUTO) 3.2 10^3/uL (1.5-6.6); NEUTROPHILS % (AUTO) 45.9 %; PLT - PLATELET COUNT 351 10^3/uL (130-450); RED BLOOD COUNT 4.44 10^6/uL (4.20-5.40); RED CELL DISTRIBUTION WIDTH 13.4 % (12.0-15.0)
--- NOTE | 2023-03-24 22:03 | XRAY Report ---
PROCEDURE: Chest 1 View X-Ray INDICATIONS: SOA TECHNIQUE: One view of the chest was acquired. COMPARISON: None. FINDINGS: Surgical changes and devices: None. Lungs and pleura: No pleural effusions or pneumothorax. Lungs are clear. Mediastinum: Mediastinal contours appear normal. Heart size is enlarged. Bones and chest wall: No suspicious bony lesions. Overlying soft tissues appear unremarkable. IMPRESSION: No acute pulmonary process. Reviewed by: Magalie Gleason MD on 03/24/2023 10:02 PM [facility] Approved by: Magalie Gleason MD on 03/24/2023 10:02 PM [facility] Station ID: [id number]
[2023-03-24 22:14] LABS: ALBUMIN 3.8 g/dL (3.2-5.5); ALBUMIN/GLOBULIN RATIO 1.5 (1.0-2.2); BILIRUBIN,TOTAL 0.3 mg/dL (0.2-1.0); CALCIUM 9.2 mg/dL (8.5-10.3); CREATININE 0.6 mg/dL (0.6-1.3); TOTAL PROTEIN 6.3 g/dL (6.4-8.9)
[2023-03-24 22:22] LABS: TROPONIN I HIGH SENSITIVITY 4.4 ng/L (2.3-14.8)
[2023-03-24] MEDS ORDERED: iohexoL-300 100 ML VIAL IVP ONE (23:52)
[2023-03-25 00:14] LABS: B. PARAPERTUSSIS- RESP PCR PAN NOT DETECTED; B. PERTUSSIS- RESP PCR PANEL NOT DETECTED; C. PNEUMONIAE- RESP PCR PANEL NOT DETECTED; CORONAVIRUS 229E-RESP PCR NOT DETECTED; CORONAVIRUS HKU1-RESP PCR NOT DETECTED; CORONAVIRUS NL63-RESP PCR NOT DETECTED; CORONAVIRUS OC43-RESP PCR NOT DETECTED; HUMAN METAPNEUMOVIRUS NOT DETECTED; INFLUENZA A- RESP PCR PANEL NOT DETECTED; INFLUENZA B - RESP PCR PANEL NOT DETECTED; M. PNEUMONIAE- RESP PCR PANEL NOT DETECTED; PARAINFLUENZA VIRUS 1 NOT DETECTED; PARAINFLUENZA VIRUS 2 NOT DETECTED; PARAINFLUENZA VIRUS 3 NOT DETECTED; PARAINFLUENZA VIRUS 4 NOT DETECTED; RHINOVIRUS/ENTEROVIRUS NOT DETECTED; RSV- RESP PCR PANEL NOT DETECTED; SARS-CoV-2 -RESP PCR PANEL NOT DETECTED
--- NOTE | 2023-03-25 00:14 | CT Report ---
PROCEDURE: ANGIO CHEST W/WO INDICATIONS: SOA/recent surgery/abnormal ddimer CONTRAST: Omni 300 80ml TECHNIQUE: After the administration of intravenous contrast, 2 mm axial images were acquired from the pulmonary apices to the posterior costophrenic angles during the arterial phase. In addition, 1 mm lung kernel and 5 mm soft tissue kernel reconstructions were performed. 3-dimensional coronal oblique maximum int ensity projection (MIP) reformats, 8 mm axial MIP, and 5 mm coronal and sagittal MPR reformats were t hen performed through the thorax. For radiation dose reduction, the following was used: automated exp osure control, adjustment of mA and/or kV according to patient size. COMPARISON: Chest x-ray 03/24/2023 FINDINGS: Image quality: Excellent. Large vessels: Scattered areas of segmental pulmonary artery filling defects are identified. Extendin g into upper and lower lobes. No central pulmonary embolism. No heart strain. Lungs and pleura: No consolidation. No pleural effusions. No pneumothorax. No suspicious pulmonary n odules which require follow up. Mediastinum: Heart size is normal. No pericardial effusion. No large vessel abnormality. No mediastin al adenopathy by size criteria. Chest wall and lower neck: Thyroid is unremarkable. No axillary or supraclavicular adenopathy by size . Bones: No aggressive osseous abnormality. Upper Abdomen: Unremarkable. IMPRESSION: Bilateral segmental pulmonary emboli without right heart strain. The above findings were discussed with Dr. Gideon Rios on 03/25/2023 at 12:10 AM. Reviewed by: Magalie Gleason MD on 03/25/2023 12:13 AM PST Approved by: Magalie Gleason MD on 03/25/2023 12:13 AM PST Station ID: [id number]
[2023-03-25] MEDS ORDERED: APIXABAN 5 MG TABLET PO STA ×2 (00:21)
[2023-03-25 00:39] VITALS: BP 167/105; O2SAT 98
== END 2023-03-25 00:45 | disposition home or self-care (01) ==
LOC: EDUNIT# → ED 21:36
DX: I26.99 Other pulmonary embolism without acute cor pulmonale (principal); F17.200 Nicotine dependence, unspecified, uncomplicated; Z20.822 Contact with and (suspected) exposure to COVID-19
CPT/HCPCS: 36415; 71045; 71275; 80053; 83880; 84484; 85025; 85379; 87633; 93005; 99284; A9270; Q9967

== ENCOUNTER 2023-04-07 14:28 | Outpatient (CLI) | payer MEDICAID | END 2023-04-07 14:29 | disposition critical access hospital (66) | LOC: EMS 14:28 | DX: R07.89 Other chest pain (principal); M54.6 Pain in thoracic spine | CPT/HCPCS: A0425; A0429; A0999 ==

== ENCOUNTER 2023-04-07 14:50 | Emergency (ER) | payer MEDICAID ==
[2023-04-07] MEDS ORDERED: MORPHINE 2 MG/ML CARPUJECT IVP STA (15:09)
[2023-04-07] MEDS ORDERED: IPRATROPIUM/ALBUTEROL 3 ML NEB INH STA (15:09)
[2023-04-07 15:14] VITALS: O2SAT 97
--- NOTE | 2023-04-07 15:17 | ED Physician Documentation ---
History of Present Illness - Stated complaint Stated Complaint: CHEST/BACK PX - Chief complaint Chief Complaint: Cardiac - History obtained from History obtained from: Patient, Family, EMS - History of Present Illness Pain level max: 7 Pain level now: 6 - Additonal information Additional information: Patient is a 62-year-old female who on March 24 had bilateral segmental pulmonary emboli with no right heart strain. She has been on Eliquis. She had a recent back surgery as well. She went to her doctor's office today for a follow-up appointment after her back surgery and had not taken her pain meds for approximately 9 hours. She usually takes them every 4-5 hours. She states that her back started to hurt and she started to become anxious. She states that her doctor called an ambulance and she was brought here for evaluation. Denies any chest pain. She says she does not feel very short of breath. Does use albuterol at home. She does smoke cannabis, vape and tobacco. She states that she has been taking her Eliquis as prescribed. Review of Systems Constitutional: denies: Fever, Chills Nose: denies: Rhinorrhea / runny nose, Congestion Throat: denies: Sore throat Cardiac: denies: Palpitations Respiratory: reports: Wheezing (mild). denies: Cough GI: denies: Abdominal Pain, Nausea, Vomiting, Diarrhea Skin: denies: Rash Musculoskeletal: denies: Neck pain, Back pain Neurologic: denies: Headache PD PAST MEDICAL HISTORY - Past Medical History Past Medical History: Yes Respiratory: Asthma Neuro: Peripheral neuropathy Psych: Depression, Anxiety Musculoskeletal: Osteoarthritis Other Past Medical History: Bilateral PE - Past Surgical History Past Surgical History: Yes Ortho: Spine surgery - Present Medications Home Medications: Ambulatory Orders Medication Instructions Recorded Confirmed Ascorbic Acid [Vitamin C] 1,000 mg PO DAILY 12/04/22 12/09/22 Baclofen [Lioresal] 10 mg PO BID #30 tablet 12/04/22 12/09/22 Gabapentin [Neurontin] 1,200 mg PO TID 12/04/22 12/09/22 HYDROcod/ACETAM 5/325 [[place] 5/325] 1 ea PO Q6H PRN #18 tablet 12/04/22 12/09/22 Meloxicam [Mobic] 7.5 mg PO BID 10 Days #20 tablet 12/04/22 12/09/22 Vitamin B Complex 1 each PO DAILY 12/04/22 12/09/22 dexAMETHasone [Decadron] 4 mg PO DAILY #7 tablet 12/09/22 tiZANidine [Zanaflex] 4 mg PO Q8H PRN #25 tablet 12/09/22 Apixaban [Eliquis] 10 mg ORAL BID 30 Days #74 tablet 03/25/23 - Allergies Allergies/Adverse Reactions: Allergies Allergy/AdvReac Type Severity Reaction Status Date / Time No Known Drug Allergies Allergy Verified 12/04/22 00:15 - Social History Does the pt smoke?: Yes Smoking Status: Current every day smoker Does the pt drink ETOH?: No Does the pt have substance abuse?: No - Immunizations Immunizations are current?: Yes - POLST Patient has POLST: No PD ED PE NORMAL - Vitals Vital signs reviewed: Yes - General General: Alert and oriented X 3, No acute distress - HEENT HEENT: PERRL, Moist mucous membranes - Neck Neck: Supple, no meningeal sign - Cardiac Cardiac: RRR, Strong equal pulses - Respiratory Respiratory: No respiratory distress, Other (Mild wheezing bilaterally) - Abdomen Abdomen: Soft, Non tender, Non distended, No organomegaly - Back Back: No CVA TTP, No spinal TTP - Derm Derm: Warm and dry - Extremities Extremities: No edema, No calf tenderness / cord - Neuro Neuro: Alert and oriented X 3 - Psych Psych: Normal mood, Normal affect Results - Vitals Vitals: Vital Signs - 24 hr 04/07/23 04/07/23 04/07/23 15:04 15:24 15:46 Temperature 36.4 C L Heart Rate 80 85 93 Respiratory 15 16 16 Rate Blood Pressure 162/92 H 162/82 H O2 Saturation 97 97 If not protocol 97 : Oxygen Flow, liters/minute 04/07/23 04/07/23 16:13 16:36 Temperature Heart Rate 91 Respiratory 16 17 Rate Blood Pressure 156/93 H O2 Saturation 97 If not protocol : Oxygen Flow, liters/minute Oxygen O2 Source Room air PD Medical Decision Making - ED course Complexity details: reviewed results, re-evaluated patient, considered differential, d/w patient ED course: Patient with back pain after her recent spinal surgery and did not take her medications as usual. Usually on oxycodone every 4-5 hours, has been almost 9 hours. She has no tachycardia, no tachypnea, no pleuritic chest pain. No recurrent shortness of breath. Symptoms resolved with 4 mg of morphine and a DuoNeb treatment. No indication for repeat CT scan at this time. Patient had scattered segmental pulmonary emboli on her recent CT scan. Will continue the Eliquis at home. No chest pain. Patient and family counseled regarding signs and symptoms for which I believe and urgent re-evaluation would be necessary. Patient with good understanding of and agreement to plan and is comfortable going home at this time This document was made in part using voice recognition software. While efforts are made to proofread this document, sound alike and grammatical errors may occur. Departure - Departure Disposition: Home, Self Care Clinical Impression: Acute exacerbation of chronic low back pain COPD (chronic obstructive pulmonary disease) Qualifiers: COPD type: unspecified COPD Qualified Code(s): J44.9 - Chronic obstructive pulmonary disease, unspecified Condition: Good Instructions: ED Back Care Tips, ED COPD Flare Follow-Up: Kayce Ortiz ARNP [Primary Care Provider] - Comments: Please make sure you are using your nebulizer at home. Please continue to use your medication for your low back pain. Please follow-up with your doctor for further care. Please continue your Eliquis for your recent PE diagnosis. If you develop chest pain, severe shortness of breath or other new or worrisome symptoms, please return for repeat evaluation. Forms: PCP List Discharge Date/Time: 04/07/23 16:37
[2023-04-07 16:19] VITALS: BP 156/93
== END 2023-04-07 16:37 | disposition home or self-care (01) ==
LOC: EDUNIT# → ED 14:50
DX: M54.50 Low back pain, unspecified (principal); J44.9 Chronic obstructive pulmonary disease, unspecified; F17.200 Nicotine dependence, unspecified, uncomplicated
CPT/HCPCS: 94640; 96374; 99284

== ENCOUNTER 2023-04-28 08:00 | Outpatient (CLI) | payer MEDICAID ==
[2023-04-29 11:57] LABS: BILIRUBIN,URINE NEGATIVE (NEGATIVE); GLUCOSE, URINE (UA) NEGATIVE (NEGATIVE); KETONES,URINE (UA) NEGATIVE (NEGATIVE); LEUKOCYTE ESTERASE, URINE NEGATIVE (NEGATIVE); NITRITE,URINE NEGATIVE (NEGATIVE); OCCULT BLOOD,URINE LARGE (NEGATIVE); PH,URINE 7.5 PH (5.0-7.5); PROTEIN,URINE NEGATIVE (NEGATIVE); UROBILINOGEN,URINE 0.2 (NORMAL) E.U./dL (NORMAL)
[2023-04-29 12:14] LABS: CLARITY,URINE CLOUDY (CLEAR); SQUAMOUS EPITHELIAL CELL,UR MOD Squamous (<= Few); WBC,URINE 0-3 /HPF (0-5)
[2023-04-29 12:15] LABS: AMORPHOUS SEDIMENT,UR Moderate /LPF; BACTERIA,URINE Rare /HPF (None Seen)
== END 2023-04-28 08:01 | disposition home or self-care (01) ==
LOC: LAB.WCP 08:00
PROVIDERS: ATTEND Nurse Practitioner Family
DX: R30.0 Dysuria (principal)
CPT/HCPCS: 81001; 87086

== ENCOUNTER 2023-06-09 08:00 | Outpatient (CLI) | payer MEDICAID ==
[2023-06-09 18:10] LABS: AMPHETAMINE SCREEN,URINE NEGATIVE (NEGATIVE); BARBITURATE SCREEN,UR NEGATIVE (NEGATIVE); BENZODIAZEPINES SCREEN, URINE NEGATIVE (NEGATIVE); BUPRENORPHINE SCREEN, URINE NEGATIVE (NEGATIVE); COCAINE SCREEN URINE NEGATIVE (NEGATIVE); METHADONE SCREEN, URINE NEGATIVE (NEGATIVE); METHAMPHETAMINES SCREEN, URINE NEGATIVE (NEGATIVE); OPIATE SCREEN, URINE POSITIVE (NEGATIVE); OXYCODONE SCREEN, URINE NEGATIVE (NEGATIVE); THC CANNABINOID SCREEN, URINE POSITIVE (NEGATIVE); TRICYCLIC ANTIDEPRESSANT,URINE NEGATIVE (NEGATIVE)
== END 2023-06-09 23:59 | disposition home or self-care (01) ==
LOC: LAB.N 08:00
PROVIDERS: ATTEND Family Medicine
DX: M54.12 Radiculopathy, cervical region (principal); F11.90 Opioid use, unspecified, uncomplicated
CPT/HCPCS: 80306; 80361; 81599

== ENCOUNTER 2023-06-18 14:14 | Outpatient (CLI) | payer MEDICAID ==
--- NOTE | 2023-06-18 18:09 | Ultrasound Report ---
PROCEDURE: Abdomen Limited INDICATIONS: ABD PAIN, FIBROID TECHNIQUE: Real-time focused scanning was performed of the right lower quadrant. COMPARISONS: None. FINDINGS: Targeted ultrasound of the right lower quadrant demonstrates no sonographic abnormality. IMPRESSION: Targeted ultrasound of the right lower quadrant demonstrates no sonographic abnormality. Reviewed by: Ayleen Babb MD on 06/18/2023 6:07 PM PST Approved by: Ayleen Babb MD on 06/18/2023 6:07 PM PST Station ID: [id number]
--- NOTE | 2023-06-18 22:31 | Ultrasound Report ---
PROCEDURE: Pelvic w/Transvaginal INDICATIONS: ABD PAIN, FIBROID TECHNIQUE: Real-time scanning was performed of the pelvic organs, with image documentation. Additional endovagi nal scanning was necessary due to incomplete visualization of the adnexal and endometrial structures by transabdominal scanning. COMPARISON: None. FINDINGS: Uterus: Uterus is anteverted and normal in size at 4.7 x 2.5 x 3 point cm. The myometrium is hetero geneous. The endometrium measures 1.6 mm in combined thickness. There is a 2.5 x 2.4 x 2.5 cm submu cosal fibroid in the uterine fundus at midline. There is a small amount of fluid within the endocervi sherrell canal. Ovaries: Ovaries are not visualized. No adnexal masses are seen. No cystic lesions measuring greater than 3 cm. Other: No pathologic free abdominal or pelvic fluid. IMPRESSION: 1. A 2.5 x 2.4 x 2.5 cm submucosal fibroid in the uterine fundus at midline. 2. There is a small amount of fluid in the endocervical canal. 3. Endometrium is within normal limits for a postmenopausal woman. 4. Ovaries are not visualized. No adnexal mass. 5. No free fluid in pelvis. Reviewed by: Maureen Nash MD on 06/18/2023 10:29 PM PST Approved by: Maureen Nash MD on 06/18/2023 10:29 PM PST Station ID: [id number]
== END 2023-06-18 14:15 | disposition home or self-care (01) ==
LOC: DI 14:14
PROVIDERS: ATTEND Nurse Practitioner Family
DX: R19.7 Diarrhea, unspecified (principal); R10.31 Right lower quadrant pain; D25.0 Submucous leiomyoma of uterus

== ENCOUNTER 2023-07-08 18:30 | Emergency (ER) | payer MEDICAID ==
[2023-07-08 18:47] VITALS: BP 153/106; O2SAT 99
--- NOTE | 2023-07-08 19:40 | ED Physician Documentation ---
History of Present Illness - Stated complaint Stated Complaint: BILAT ARM PX/NUMBNESS - Chief complaint Chief Complaint: Neuro - History obtained from History obtained from: Patient - History of Present Illness Pain level max: 10 Pain level now: 10 - Additonal information Additional information: 63-year-old female is on Vicodin at home for pain. She is chronically on narcotics. She states that she was having increasing pain at home so was taking 4 pills a day instead of 3 which is caused her to run out early. She states she has been trying to contact her doctor since Wednesday but has not been able to get a hold of them. She states now she is having generalized bodyaches. She states she feels like she is in withdrawal. Patient states that her doctor is out of town. Review of Systems Constitutional: denies: Fever, Chills Respiratory: denies: Cough GI: reports: Nausea. denies: Abdominal Pain, Vomiting, Diarrhea : denies: Dysuria Skin: denies: Rash Musculoskeletal: reports: Neck pain (Chronic, unchanged), Back pain (Chronic, unchanged) Neurologic: denies: Headache PD PAST MEDICAL HISTORY - Past Medical History Respiratory: Asthma Neuro: Peripheral neuropathy Psych: Depression, Anxiety Musculoskeletal: Osteoarthritis - Past Surgical History Past Surgical History: Yes Ortho: Spine surgery - Present Medications Home Medications: Ambulatory Orders Medication Instructions Recorded Confirmed Baclofen [Lioresal] 10 mg PO BID #30 tablet 12/04/22 12/09/22 Gabapentin [Neurontin] 1,200 mg PO TID 12/04/22 12/09/22 HYDROcod/ACETAM 5/325 [[place] 5/325] 1 ea PO Q6H PRN #18 tablet 12/04/22 12/09/22 Apixaban [Eliquis] 10 mg ORAL BID 30 Days #74 tablet 03/25/23 Apixaban [Eliquis] 2.5 mg PO DAILY 07/08/23 07/08/23 Baclofen 5 mg PO DAILY 07/08/23 07/08/23 Escitalopram [Lexapro] 10 mg PO DAILY 07/08/23 07/08/23 Folic Acid 1 mg PO DAILY 07/08/23 07/08/23 HYDROcod/ACETAM 5/325 [[place] 5/325] 1 ea PO Q8H PRN #10 tablet 07/08/23 Losartan [Cozaar] 50 mg PO DAILY 07/08/23 07/08/23 Pantoprazole [Protonix] 40 mg PO DAILY 07/08/23 07/08/23 Prednisone [Natividad] 1 mg PO DAILY 07/08/23 07/08/23 busPIRone [Buspar] 5 mg PO DAILY 07/08/23 07/08/23 - Allergies Allergies/Adverse Reactions: Allergies Allergy/AdvReac Type Severity Reaction Status Date / Time No Known Drug Allergies Allergy Verified 07/08/23 18:48 - Social History Does the pt smoke?: Yes Smoking Status: Current every day smoker Does the pt drink ETOH?: No Does the pt have substance abuse?: No - Immunizations Immunizations are current?: Yes - POLST Patient has POLST: No PD ED PE NORMAL - Vitals Vital signs reviewed: Yes - General General: Alert and oriented X 3, No acute distress - HEENT HEENT: Atraumatic, PERRL, EOMI, Moist mucous membranes - Neck Neck: Supple, no meningeal sign, No bony TTP - Cardiac Cardiac: RRR, Strong equal pulses - Respiratory Respiratory: No respiratory distress, Clear bilaterally - Abdomen Abdomen: Soft, Non tender, Non distended - Back Back: No spinal TTP - Derm Derm: Warm and dry - Extremities Extremities: No edema - Neuro Neuro: Alert and oriented X 3, 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 Afebrile. Given a dose of hydrocodone and symptoms improved. Appears to be in narcotic withdrawal. Will prescribe a small amount of pain medication to get her through the next few days until she can discuss with her doctor. Informed her that she needs to be upfront and honest with her doctor when she is changing her medications on her own and that she is likely under a pain contract. No emergency medical condition at this time. Patient counseled regarding signs and symptoms for which I believe and urgent re-evaluation would be necessary. Patient with good understanding of and agreement to plan and is comfortable going home at this time This document was made in part using voice recognition software. While efforts are made to proofread this document, sound alike and grammatical errors may occur. Departure - Departure Disposition: 01 Home, Self Care Clinical Impression: Narcotic withdrawal Condition: Good Instructions: ED Withdrawal Narcotic Follow-Up: Kayce Ortiz ARNP [Primary Care Provider] - AURELIA HARPER MD [Physician No Access] - Tomorrow Aurelia Harper MD [Provider Admit Priv/Credential] - Prescriptions: HYDROcod/ACETAM 5/325 [[place] 5/325] 1 ea PO Q8H PRN #10 tablet PRN Reason: Pain Comments: Your prescription was sent to [facility] in [place]. Please contact your provider's office tomorrow. You need to inform them of your increased use of pain medication. You also need to discuss obtaining further medications from them. The prescription given today should help prevent you from narcotic withdrawal. I am prescribing a short course of narcotic pain medication for you. These are potentially dangerous and addictive medications that should be used carefully. These medications may constipate you. Take an hgem-zzz-wuowpnh stool softener (docusate) twice daily with plenty of water while taking these medications. If you go 24 hours without a bowel movement, take mlcz-zar-eznfrli miralax, per package instructions. Do not drink or drive while taking these medications. If you received narcotic or sedating medications while in the emergency department, do not drive for 24 hours. Store this medication in a safe, secure place and out of reach of children. It is a violation of federal law to give or sell this medication to another person or to use in a manner other than prescribed. The ED will not refill narcotic prescriptions, including prescriptions lost or stolen. To dispose of unwanted medications: 1. [facility] at [address] in [place] has a medication drop box. They accept prescription medications (in pill form) Wednesday through Wednesday 9:00 a.m. to 5:00 p.m. 2. [facility] [employer] accepts prescription medications (in pill form only) for disposal year round. Call for more information. 3. Contact the [facility] for the next [facility] sponsored prescription drug collection event. , [phone], or [phone]; Forms: PCP List Discharge Date/Time: 07/08/23 20:01
[2023-07-08] MEDS: HYDROcod/ACETAM 5/325 MG TABLET PO STA (19:53)
--- NOTE | 2023-07-09 10:07 | ED Physician Documentation ---
ED Addendum - Addendum Addendum: 07/09/23 10:06 Notified by Parag that patient is requesting hydrocodone prescription be sent to [facility] and not [facility]. I reviewed Dr. Gomez's note. I will resend a new prescription to [facility] and Cancel the prescription written by Dr. Gomez that was sent to [facility].
== END 2023-07-08 20:01 | disposition home or self-care (01) ==
LOC: ED 18:30
DX: T65.91XA Toxic effect of unspecified substance, accidental (unintentional), initial encounter (principal); F11.23 Opioid dependence with withdrawal; M54.2 Cervicalgia; G89.29 Other chronic pain; F17.200 Nicotine dependence, unspecified, uncomplicated
CPT/HCPCS: 99282; 99284; A9270

== ENCOUNTER 2023-07-09 15:22 | Emergency (ER) | payer MEDICAID ==
[2023-07-09 16:02] VITALS: O2SAT 98
--- NOTE | 2023-07-09 17:35 | ED Physician Documentation ---
History of Present Illness - Stated complaint Stated Complaint: HAND/FEET PX - Chief complaint Chief Complaint: General - History obtained from History obtained from: Patient - Additonal information Additional information: Pt is a 63 yo F presenting with bilateral hand pain that is chronic for her. Patient states that she is undergoing autoimmune workup with rheumatology but not yet with a diagnosis. She was prescribed 90 pills (30 day supply) of hydrocodone - acetaminophen on 06/15/23. She was seen last night in our ED because she has run out of her meds early due to using them more frequently. [email or web address] by Dr. Medrano. This morning, I received a request that patient wanted medication sent to [facility] and after reviewing Dr. Medrano's note, I did send a new Rx. A bit later I received a call from [facility] pharmacy that they had concerns about this patient and her use of opiates currently and in the past with needing refills before they are due and reviewing her PROJECT MANAGEMENT. They told the patient they were not going to refill the medication. She then told them she would get it at [facility] so [facility] called [facility] and [facility] is also declining to fill her prescription. However, [facility] told her it was only because they do not have the medication in stock but [email or web address] told me that was not accurate. Patient then called to request medication to [facility] and I declined to send another prescription. I did review her PROJECT MANAGEMENT and she has recently primarily been getting narcotics from her PCP and in the fall from her orthopedic surgeon, Dr. Naik. She states she has tried other medications for her pain in the past such as gabapentin which she takes the max dose for and does not find it helpful. She is tapering off a course of prednisone for a suspected autoimmune condition and states this also has not helped. She denies GI upset, and her pain is the same as her chronic pain. Review of Systems Constitutional: denies: Fever Cardiac: denies: Chest pain / pressure Respiratory: denies: Dyspnea GI: denies: Abdominal Pain Skin: denies: Rash Musculoskeletal: reports: Back pain (Chronic), Other (Bone pain in hands) PD PAST MEDICAL HISTORY - Past Medical History Respiratory: Asthma Neuro: Peripheral neuropathy Psych: Depression, Anxiety Musculoskeletal: Osteoarthritis - Past Surgical History Past Surgical History: Yes Ortho: Spine surgery - Present Medications Home Medications: Ambulatory Orders Medication Instructions Recorded Confirmed Baclofen [Lioresal] 10 mg PO BID #30 tablet 12/04/22 12/09/22 Gabapentin [Neurontin] 1,200 mg PO TID 12/04/22 12/09/22 HYDROcod/ACETAM 5/325 [[place] 5/325] 1 ea PO Q6H PRN #18 tablet 12/04/22 12/09/22 Apixaban [Eliquis] 10 mg ORAL BID 30 Days #74 tablet 03/25/23 Apixaban [Eliquis] 2.5 mg PO DAILY 07/08/23 07/08/23 Baclofen 5 mg PO DAILY 07/08/23 07/08/23 Escitalopram [Lexapro] 10 mg PO DAILY 07/08/23 07/08/23 Folic Acid 1 mg PO DAILY 07/08/23 07/08/23 Losartan [Cozaar] 50 mg PO DAILY 07/08/23 07/08/23 Pantoprazole [Protonix] 40 mg PO DAILY 07/08/23 07/08/23 Prednisone [Natividad] 1 mg PO DAILY 07/08/23 07/08/23 busPIRone [Buspar] 5 mg PO DAILY 07/08/23 07/08/23 Diclofenac Sodium 1% Gel [Voltaren 1 applic TOP BID #50 gm 07/09/23 Gel] HYDROcod/ACETAM 5/325 [[place] 5/325] 1 tablet PO Q8H PRN #10 tablet 07/09/23 Lidocaine Patch 5% [Lidoderm Patch] 1 patch TOP DAILY PRN #10 patch 07/09/23 - Allergies Allergies/Adverse Reactions: Allergies Allergy/AdvReac Type Severity Reaction Status Date / Time No Known Drug Allergies Allergy Verified 07/08/23 18:48 - Social History Does the pt smoke?: Yes Smoking Status: Current every day smoker Does the pt drink ETOH?: No Does the pt have substance abuse?: No - Immunizations Immunizations are current?: Yes - POLST Patient has POLST: No PD ED PE NORMAL - General General: Alert and oriented X 3, No acute distress, Well developed/nourished - HEENT HEENT: Atraumatic, PERRL, Moist mucous membranes, Pharynx benign - Neck Neck: Supple, no meningeal sign - Cardiac Cardiac: RRR, Strong equal pulses - Respiratory Respiratory: No respiratory distress, Clear bilaterally - Abdomen Abdomen: Soft, Non tender - Back Back: No spinal TTP - Derm Derm: Warm and dry - Neuro Neuro: Alert and oriented X 3, No motor deficit, Normal speech Eye Opening: Spontaneous Motor: Obeys Commands Verbal: Oriented GCS Score: 15 Results - Vitals Vitals: Vital Signs - 24 hr 07/09/23 07/09/23 15:53 17:57 Temperature 36.6 C Heart Rate 104 H 104 H Respiratory 16 18 Rate Blood Pressure 148/107 H 173/110 H O2 Saturation 98 98 Oxygen O2 Source Room air PD Medical Decision Making - ED course ED course: Pt present for refill on her chronic pain medication due to using it more frequently. Seen last night and 2 pharmacies have declined to fill her Rx due to concerns. Pain is chronic and unchanged. COWS score low to suggest not in active withdrawal. Long conversation with patient and about non opiate options and limitations in ED in treating chronic pain. Pt is not in active withdrawal here. She does not want to quit opiates at this time. Pt asked me to try a different pharmacy to send the Rx too and I felt this was inappropriate to do at this time given 2 other pharmacies declining it. Pt encouraged to try non opiate options and continue to work on her chronic pain with her PCP. Pt advised on return precautions. Departure - Departure Disposition: 01 Home, Self Care Clinical Impression: Chronic pain Condition: Stable Instructions: ED Chronic Pain Management Prescriptions: Lidocaine Patch 5% [Lidoderm Patch] 1 patch TOP DAILY PRN #10 patch PRN Reason: pain Diclofenac Sodium 1% Gel [Voltaren Gel] 1 applic TOP BID #50 gm Comments: You need to follow-up with your primary care providers regarding your chronic pain and recent opiate use. Were not able to provide any further prescriptions from the emergency department For you to try to refill your recent narcotic prescription. I have sent a prescription for lidocaine patches and voltaren gel to [facility]. Please continue with acetaminophen 1000mg every 6-8 hrs as needed for pain and gabapentin. Please call your primary care provider for close follow-up. It is very important to only take your medications as directed. Forms: PCP List Discharge Date/Time: 07/09/23 17:57
[2023-07-09] MEDS: LIDOCAINE PATCH 5% TOP STA (17:50)
[2023-07-09] MEDS: HYDROcod/ACETAM 5/325 MG TABLET PO STA (17:50)
[2023-07-09 18:07] VITALS: BP 173/110
== END 2023-07-09 17:57 | disposition home or self-care (01) ==
LOC: ED 15:22
DX: Z76.0 Encounter for issue of repeat prescription (principal); G89.29 Other chronic pain; F17.200 Nicotine dependence, unspecified, uncomplicated
CPT/HCPCS: 99282; 99283; A9270

== ENCOUNTER 2023-07-13 08:00 | Outpatient (CLI) | payer MEDICAID | END 2023-07-13 23:59 | disposition home or self-care (01) | LOC: LAB.WCP 08:00 | PROVIDERS: ATTEND Family Medicine | DX: F11.90 Opioid use, unspecified, uncomplicated (principal) | CPT/HCPCS: 80307; 81599 ==

== ENCOUNTER 2023-07-24 11:45 | Outpatient (CLI) | payer MEDICAID ==
[2023-07-24 19:53] LABS: BASOPHILS # (AUTO) 0.1 10^3/uL (0.0-0.1); BASOPHILS % (AUTO) 0.8 %; EOSINOPHILS # (AUTO) 0.1 10^3/uL (0.0-0.7); EOSINOPHILS % (AUTO) 0.6 %; HGB - HEMOGLOBIN 15.8 g/dL (12.0-16.0); LYMPHOCYTES # (AUTO) 3.1 10^3/uL (1.5-3.5); LYMPHOCYTES % (AUTO) 29.4 %; MEAN CORPUSCULAR HEMOGLOBIN 29.7 pg (27.0-31.0); MEAN CORPUSCULAR HGB CONC 32.2 g/dL (32.0-36.0); MEAN CORPUSCULAR VOLUME 92.1 fL (81.0-99.0); MONOCYTES # (AUTO) 0.9 10^3/uL (0.0-1.0); MONOCYTES % (AUTO) 8.3 %; NEUTROPHILS # (AUTO) 6.3 10^3/uL (1.5-6.6); NEUTROPHILS % (AUTO) 60.2 %; PLT - PLATELET COUNT 430 10^3/uL (130-450); RED BLOOD COUNT 5.32 10^6/uL (4.20-5.40); RED CELL DISTRIBUTION WIDTH 14.2 % (12.0-15.0); WHITE BLOOD COUNT 10.5 x10^3/uL (4.8-10.8)
[2023-07-24 20:30] LABS: CALCIUM 9.9 mg/dL (8.5-10.3); CREATININE 0.7 mg/dL (0.6-1.3); POTASSIUM 3.9 mmol/L (3.5-4.5)
== END 2023-07-24 11:46 | disposition home or self-care (01) ==
LOC: LAB.N 11:45
PROVIDERS: ATTEND Nurse Practitioner Family
DX: E83.52 Hypercalcemia (principal); D75.1 Secondary polycythemia; E87.5 Hyperkalemia
CPT/HCPCS: 36415; 80048; 81599; 82306; 82330; 83540; 83970; 84466; 85025

== ENCOUNTER 2023-09-04 12:33 | Outpatient (CLI) | payer MEDICAID | END 2023-09-04 23:59 | disposition critical access hospital (66) | LOC: EMS 12:33 | DX: R10.10 Upper abdominal pain, unspecified (principal); R11.0 Nausea; M54.50 Low back pain, unspecified | CPT/HCPCS: A0425; A0427; A0999 ==

== ENCOUNTER 2023-09-04 12:58 | Emergency (ER) | payer MEDICAID ==
[2023-09-04 13:14] VITALS: O2SAT 98
[2023-09-04 13:27] LABS: BASOPHILS # (AUTO) 0.1 10^3/uL (0.0-0.1); BASOPHILS % (AUTO) 0.5 %; EOSINOPHILS # (AUTO) 0.1 10^3/uL (0.0-0.7); EOSINOPHILS % (AUTO) 0.7 %; HGB - HEMOGLOBIN 13.9 g/dL (12.0-16.0); LYMPHOCYTES # (AUTO) 2.6 10^3/uL (1.5-3.5); LYMPHOCYTES % (AUTO) 27.9 %; MEAN CORPUSCULAR HEMOGLOBIN 30.7 pg (27.0-31.0); MEAN CORPUSCULAR HGB CONC 31.6 g/dL (32.0-36.0); MEAN CORPUSCULAR VOLUME 97.1 fL (81.0-99.0); MEAN PLATELET VOLUME 8.5 fL (7.9-10.8); MONOCYTES # (AUTO) 0.8 10^3/uL (0.0-1.0); MONOCYTES % (AUTO) 8.9 %; NEUTROPHILS # (AUTO) 5.7 10^3/uL (1.5-6.6); NEUTROPHILS % (AUTO) 61.3 %; PLT - PLATELET COUNT 313 10^3/uL (130-450); RED BLOOD COUNT 4.53 10^6/uL (4.20-5.40); RED CELL DISTRIBUTION WIDTH 15.6 % (12.0-15.0); WHITE BLOOD COUNT 9.2 x10^3/uL (4.8-10.8)
--- NOTE | 2023-09-04 13:36 | ED Physician Documentation ---
PD HPI ABD PAIN - Stated complaint Stated Complaint: ABD PAIN - Chief complaint Chief Complaint: Abd Pain - History obtained from History obtained from: Patient - Additional information Additional information: She has a history of some sort of autoimmune disease for which she is on dexamethasone and leflunomide. It sounds like it has not yet been named. She has no history of abdominal surgeries. She presents with complaints of abdominal pain starting this morning after she woke up. She had motions to the whole abdomen as the site of pain. This is nothing she is ever had before. She was nauseous and in significant pain, these have resolved after medications given by EMS en route. She did have a soft nonbloody bowel movement this morning. PD PAST MEDICAL HISTORY - Past Medical History Respiratory: Asthma Neuro: Peripheral neuropathy Psych: Depression, Anxiety Musculoskeletal: Osteoarthritis - Past Surgical History Past Surgical History: Yes Ortho: Spine surgery - Present Medications Home Medications: Ambulatory Orders Medication Instructions Recorded Confirmed Apixaban [Eliquis] 10 mg ORAL BID 30 Days #74 tablet 03/25/23 09/04/23 Escitalopram [Lexapro] 10 mg PO DAILY 07/08/23 09/04/23 Folic Acid 1 mg PO DAILY 07/08/23 09/04/23 Losartan [Cozaar] 50 mg PO DAILY 07/08/23 09/04/23 busPIRone [Buspar] 5 mg PO DAILY 07/08/23 09/04/23 Calcium Carbonate [Calcium] 1 tab PO DAILY 09/04/23 09/04/23 Cholecalciferol (Vitamin D3) 1 cap PO DAILY 09/04/23 09/04/23 [Vitamin D3] HYDROcod/ACETAM 5/325 [[place] 5/325] 1 - 2 tab PO Q6H PRN #10 tablet 09/04/23 Leflunomide 1 tab PO DAILY 09/04/23 09/04/23 Omeprazole 40 mg PO DAILY #30 cap 09/04/23 Pregabalin [Lyrica] 25 mg PO TID 09/04/23 09/04/23 dexAMETHasone [Decadron] 1 tab PO DAILY 09/04/23 09/04/23 traMADol [Ultram] 1 tab PO TID 09/04/23 09/04/23 - Allergies Allergies/Adverse Reactions: Allergies Allergy/AdvReac Type Severity Reaction Status Date / Time No Known Drug Allergies Allergy Verified 09/04/23 13:12 - Social History Does the pt smoke?: Yes Smoking Status: Current every day smoker Does the pt drink ETOH?: No Does the pt have substance abuse?: No - Immunizations Immunizations are current?: Yes - POLST Patient has POLST: No PD ED PE NORMAL - Vitals Vital signs reviewed: Yes - General General: Alert and oriented X 3, No acute distress - Cardiac Cardiac: RRR, No murmur - Respiratory Respiratory: No respiratory distress, Clear bilaterally - Abdomen Abdomen: Normal bowel sounds, Soft, Other (Focally tender in the left lower quadrant without surgical signs) - Extremities Extremities: No edema - Neuro Neuro: Alert and oriented X 3 Results - Vitals Vitals: Vital Signs - 24 hr 09/04/23 13:01 Temperature 35.9 C L Heart Rate 62 Respiratory 18 Rate Blood Pressure 180/98 H O2 Saturation 98 Oxygen O2 Source Room air - Labs Labs: Laboratory Tests 09/04/23 09/04/23 09/04/23 13:22 13:22 13:54 WBC 9.2 RBC 4.53 Hgb 13.9 Hct 44.0 MCV 97.1 MCH 30.7 MCHC 31.6 L RDW 15.6 H Plt Count 313 MPV 8.5 Neut # (Auto) 5.7 Lymph # (Auto) 2.6 Schley # (Auto) 0.8 Eos # (Auto) 0.1 Baso # (Auto) 0.1 Absolute Nucleated RBC 0.00 Nucleated RBC % 0.0 Sodium 141 Potassium 4.3 Chloride 106 Carbon Dioxide 31 Anion Gap 4.0 L BUN 10 Creatinine 0.9 Estimated GFR (MDRD) 63 L Glucose 109 H Calcium 10.7 H Total Bilirubin 0.4 AST 16 ALT 31 Alkaline Phosphatase 71 Total Protein 6.9 Albumin 4.0 Globulin 2.9 Albumin/Globulin Ratio 1.4 Lipase 89 H Urine Color YELLOW Urine Clarity CLEAR Urine pH 6.0 Ur Specific [place] 1.025 Urine Protein NEGATIVE Urine Glucose (UA) NEGATIVE Urine Ketones NEGATIVE Urine Occult Blood LARGE H Urine Nitrite NEGATIVE Urine Bilirubin NEGATIVE Urine Urobilinogen 0.2 (NORMAL) Ur Leukocyte Esterase TRACE H Urine RBC 6-10 H Urine WBC 0-3 Ur Squamous Epith Cells MOD Squamous H Urine Bacteria Few Urine Mucus Few Strands Ur Microscopic Review INDICATED Urine Culture Comments NOT INDICATED - Rads (name of study) CT of the abdomen pelvis demonstrating diverticulosis, calcified fibroids and lumbar degenerative changes. Relevant Findings:: Final report received, EMP independent interpretation of test PD Medical Decision Making - ED course ED course: 63-year-old woman presents with abdominal pain, fairly acute, and some left lower quadrant tenderness. Leading the differential would be diverticulitis. Workup in the emergency department demonstrates unremarkable CBC, CMP most notable for mild hypercalcemia. She has a mild elevation in lipase but not to the extent that would be diagnostic for pancreatitis. CT as above. I suspect she has a very mild case of diverticulitis. We did discuss her calcium, and she takes a lot of Tums and acid. Will start a PPI and advised decrease of the Tums and recheck of her calcium level. Advised dietary restrictions for mild diverticulitis and need for follow-up colonoscopy. Given close return precautions. Departure - Departure Disposition: 01 Home, Self Care Clinical Impression: Abdominal pain, Hypercalcemia Condition: Good Record reviewed to determine appropriate education?: Yes Instructions: Diet Low Residue, ED Abdominal Pain Female Non-Specific Abdominal Pain, ED Diet Clear Liquid Prescriptions: HYDROcod/ACETAM 5/325 [[place] 5/325] 1 - 2 tab PO Q6H PRN #10 tablet PRN Reason: Pain Omeprazole 40 mg PO DAILY #30 cap Comments: As discussed, I think your pain today is from a mild case of diverticulitis. The official CT reads showed diverticulosis only (no infection or inflammation,) but is given the location of your pain I do think that is probably the cause. For the next 24 hours a clear liquid diet, and after that the low residue diet, see attached instruction sheets. Also as discussed, your calcium level is modestly high. Given your history I think this is from excessive use of Tums type antacids. Try to cut back on that and I sent the prescriptions to [facility] for that in the anti-inflammatory. I expect your pain to be much better over the next few days. Return if worse. Follow-up with your primary care physician and discuss colonoscopy since you are due. Do mention the high calcium level to your primary care physician as they may want to recheck it. I am prescribing a short course of narcotic pain medication for you. These are potentially dangerous and addictive medications that should be used carefully. These medications may constipate you. Take an bpuf-qov-jdloabu stool softener (docusate) twice daily with plenty of water while taking these medications. If you go 24 hours without a bowel movement, take qpnd-rug-oktwtlp miralax, per package instructions. Do not drink or drive while taking these medications. If you received narcotic or sedating medications while in the emergency department, do not drive for 24 hours. Store this medication in a safe, secure place and out of reach of children. It is a violation of federal law to give or sell this medication to another person or to use in a manner other than prescribed. The ED will not refill narcotic prescriptions, including prescriptions lost or stolen. To dispose of unwanted medications: 1. [facility] provides a drop box for medication in pill form only (no liquids) 8:00 am to 4:30 p.m. Wednesday-Wednesday in the lobby of the [facility], [address] [place] [address]. Empty pills into ziplock bag before disposal. Call [phone] for information. 2.[employer] is a free service available to all [facility] residents. Go to [email or web address]/ Note that many narcotic pain relievers also contain Tylenol/acetaminophen. Please ensure that your total dose of acetaminophen from all sources does not exceed 3 g (3000 mg) per day. Forms: PCP List
[2023-09-04 13:49] LABS: ALBUMIN/GLOBULIN RATIO 1.4 (1.0-2.2); BILIRUBIN,TOTAL 0.4 mg/dL (0.2-1.0); CALCIUM 10.7 mg/dL (8.5-10.3); CREATININE 0.9 mg/dL (0.6-1.3); POTASSIUM 4.3 mmol/L (3.5-4.5); TOTAL PROTEIN 6.9 g/dL (6.4-8.9)
[2023-09-04] MEDS ORDERED: iohexoL-300 100 ML VIAL ONE (14:03)
[2023-09-04 14:10] LABS: BILIRUBIN,URINE NEGATIVE (NEGATIVE); CLARITY,URINE CLEAR (CLEAR); GLUCOSE, URINE (UA) NEGATIVE (NEGATIVE); KETONES,URINE (UA) NEGATIVE (NEGATIVE); LEUKOCYTE ESTERASE, URINE TRACE (NEGATIVE); NITRITE,URINE NEGATIVE (NEGATIVE); OCCULT BLOOD,URINE LARGE (NEGATIVE); PROTEIN,URINE NEGATIVE (NEGATIVE); UROBILINOGEN,URINE 0.2 (NORMAL) E.U./dL (NORMAL)
[2023-09-04 14:17] LABS: WBC,URINE 0-3 /HPF (0-5)
[2023-09-04 14:18] LABS: BACTERIA,URINE Few /HPF (None Seen); MUCUS,URINE Few Strands; SQUAMOUS EPITHELIAL CELL,UR MOD Squamous (<= Few)
--- NOTE | 2023-09-04 14:49 | CT Report ---
PROCEDURE: Abdomen/Pelvis W INDICATIONS: Bilateral lower abd pain CONTRAST: 100ml omni 300 TECHNIQUE: After the administration of intravenous contrast, a CT scan of the abdomen and pelvis was performed. Images were recorded and evaluated at appropriate window settings. Reformats: coronal and sagittal. F or radiation dose reduction, the following was used: automated exposure control, adjustment of mA and /or kV according to patient size. COMPARISON: CT of abdomen and pelvis, 12/09/2022. Ultrasound pelvis, 06/18/2023 FINDINGS: Image quality: Diagnostic. Lower chest: Lung bases are clear. Small hiatal hernia.. Liver: No solid mass. Gallbladder and biliary tree: Normal gallbladder. No radiopaque gallstones. No biliary dilation. Spleen: No splenomegaly. Pancreas: No pancreatic ductal dilation. Adrenals: Bilateral adrenal thickening. Kidneys and ureters: No hydronephrosis. No renal cystic lesion which requires follow up. No solid mas s. Stomach, bowel and peritoneum: No bowel distension. No pathologic free fluid. Diverticulosis without diverticulitis. Normal appendix. Lymph nodes: No central or retroperitoneal adenopathy. Vessels: No infrarenal aortic aneurysm. PELVIS Reproductive organs: A large calcified uterine fibroid with peripheral calcification. Ovaries are not visualized. No pathological free fluid in pelvis. Bladder: No abnormal wall thickening, accounting for underdistention. Pelvic lymph nodes: No pelvic adenopathy by size criteria. Bones: No aggressive osseous abnormality. Grade 1 anterolisthesis of L4 on L5. Grade 1 retrolisthesis of L5 on S1. Discectomy and posterior fusion at L4 -L5. Mild degenerative disc disease at L3-L4 and L5-S1. Other: No significant ventral or inguinal hernia. IMPRESSION: 1. No acute abnormalities in abdomen or pelvis. 2. Diverticulosis without diverticulitis. 3. Normal appendix. 4. Calcified uterine fibroids. 5. Degenerative and postsurgical changes in lumbar spine. Reviewed by: Maureen Nash MD on 09/04/2023 2:47 PM PDT Approved by: Maureen Nash MD on 09/04/2023 2:47 PM PDT Station ID: [id number]
[2023-09-04] MEDS: MORPHINE 2 MG/ML CARPUJECT IVP STA (15:34)
[2023-09-04] MEDS: iohexoL-300 100 ML VIAL IVP ONE (15:44)
[2023-09-04 16:27] VITALS: BP 148/86
== END 2023-09-04 16:26 | disposition home or self-care (01) ==
LOC: EDUNIT# → SUPCPDRO 12:58 → ED 12:58
DX: R10.32 Left lower quadrant pain (principal); K57.90 Diverticulosis of intestine, part unspecified, without perforation or abscess without bleeding; E83.52 Hypercalcemia; F17.200 Nicotine dependence, unspecified, uncomplicated
CPT/HCPCS: 36415; 74177; 80053; 81001; 83690; 85025; 96374; 99284; 99285; Q9967; 81003; 87086

== ENCOUNTER 2023-09-10 08:00 | Outpatient (CLI) | payer MEDICAID ==
[2023-09-10 20:55] LABS: BASOPHILS # (AUTO) 0.1 10^3/uL (0.0-0.1); BASOPHILS % (AUTO) 0.9 %; EOSINOPHILS # (AUTO) 0.1 10^3/uL (0.0-0.7); EOSINOPHILS % (AUTO) 0.9 %; HCT - HEMATOCRIT 41.2 % (37.0-47.0); HGB - HEMOGLOBIN 13.3 g/dL (12.0-16.0); LYMPHOCYTES # (AUTO) 2.2 10^3/uL (1.5-3.5); LYMPHOCYTES % (AUTO) 24.3 %; MEAN CORPUSCULAR HEMOGLOBIN 31.1 pg (27.0-31.0); MEAN CORPUSCULAR HGB CONC 32.3 g/dL (32.0-36.0); MEAN CORPUSCULAR VOLUME 96.3 fL (81.0-99.0); MEAN PLATELET VOLUME 9.6 fL (7.9-10.8); MONOCYTES # (AUTO) 0.7 10^3/uL (0.0-1.0); MONOCYTES % (AUTO) 7.8 %; NEUTROPHILS % (AUTO) 65.6 %; PLT - PLATELET COUNT 346 10^3/uL (130-450); RED BLOOD COUNT 4.28 10^6/uL (4.20-5.40); RED CELL DISTRIBUTION WIDTH 15.7 % (12.0-15.0); WHITE BLOOD COUNT 9.2 x10^3/uL (4.8-10.8)
[2023-09-10 21:06] LABS: ALBUMIN 3.7 g/dL (3.2-5.5); ALBUMIN/GLOBULIN RATIO 1.4 (1.0-2.2); BILIRUBIN,TOTAL 0.4 mg/dL (0.2-1.0); CALCIUM 9.4 mg/dL (8.5-10.3); CREATININE 0.6 mg/dL (0.6-1.3); POTASSIUM 3.8 mmol/L (3.5-4.5); TOTAL PROTEIN 6.4 g/dL (6.4-8.9)
[2023-09-10 21:16] LABS: THYROID STIMULATING HORMONE 7.62 uIU/mL (0.34-5.60)
== END 2023-09-10 23:59 | disposition home or self-care (01) ==
LOC: LAB.N 08:00
PROVIDERS: ATTEND Physician Assistant
DX: R53.83 Other fatigue (principal)
CPT/HCPCS: 36415; 80053; 84443; 85025

== ENCOUNTER 2023-10-11 16:10 | Outpatient (CLI) | payer MEDICAID ==
[2023-10-11 17:29] LABS: BASOPHILS # (AUTO) 0.1 10^3/uL (0.0-0.1); EOSINOPHILS # (AUTO) 0.1 10^3/uL (0.0-0.7); HCT - HEMATOCRIT 42.4 % (37.0-47.0); HGB - HEMOGLOBIN 13.6 g/dL (12.0-16.0); LYMPHOCYTES # (AUTO) 2.6 10^3/uL (1.5-3.5); LYMPHOCYTES % (AUTO) 36.8 %; MEAN CORPUSCULAR HEMOGLOBIN 30.5 pg (27.0-31.0); MEAN CORPUSCULAR HGB CONC 32.1 g/dL (32.0-36.0); MEAN CORPUSCULAR VOLUME 95.1 fL (81.0-99.0); MONOCYTES # (AUTO) 0.6 10^3/uL (0.0-1.0); MONOCYTES % (AUTO) 8.3 %; NEUTROPHILS # (AUTO) 3.7 10^3/uL (1.5-6.6); NEUTROPHILS % (AUTO) 52.8 %; PLT - PLATELET COUNT 279 10^3/uL (130-450); RED BLOOD COUNT 4.46 10^6/uL (4.20-5.40); RED CELL DISTRIBUTION WIDTH 13.6 % (12.0-15.0)
[2023-10-11 18:01] LABS: ALBUMIN 3.8 g/dL (3.2-5.5); ALBUMIN/GLOBULIN RATIO 1.4 (1.0-2.2); ALKALINE PHOSPHATASE 72 IU/L (42-121); ALT ALANINE AMINOTRANSFERASE 10 IU/L (10-60); AST ASPARTATE AMINOTRANSFERASE 11 IU/L (10-42); BILIRUBIN,TOTAL 0.4 mg/dL (0.2-1.0); BUN - BLOOD UREA NITROGEN 11 mg/dL (6-20); CALCIUM 9.3 mg/dL (8.5-10.3); CARBON DIOXIDE - CO2 28 mmol/L (21-32); CHLORIDE 106 mmol/L (101-111); CREATININE 0.7 mg/dL (0.6-1.3); CRP - C-REACTIVE PROTEIN < 0.5 mg/dL (<0.5); GFR - MDRD 84 (>89); GLUCOSE 104 mg/dL (74-104); POTASSIUM 3.8 mmol/L (3.5-4.5); SODIUM 139 mmol/L (135-145); TOTAL PROTEIN 6.5 g/dL (6.4-8.9)
== END 2023-10-11 16:11 | disposition home or self-care (01) ==
LOC: LAB.N 16:10
PROVIDERS: ATTEND Physician Assistant Medical
DX: M06.00 Rheumatoid arthritis without rheumatoid factor, unspecified site (principal)
CPT/HCPCS: 36415; 80053; 85025; 85651; 86140

== ENCOUNTER 2023-10-12 11:47 | Outpatient (CLI) | payer MEDICAID ==
--- NOTE | 2023-10-12 16:35 | XRAY Report ---
PROCEDURE: Foot 3+V RT INDICATIONS: UNSPECIFIED SPRAIN OF RIGHT FOOT TECHNIQUE: 3 views of the foot were acquired. COMPARISON: X-ray right foot, 10/26/2022. FINDINGS: Bones: There is a minimally displaced fracture involving the [id number] fifth metatarsal shaft. N o suspicious bony lesions. Mild metatarsus adductus and hallux valgus. Moderate osteoarthritic shaw es. Osteopenia. Soft tissues: No tibiotalar joint effusion. Achilles tendon appears normal. Dorsal soft tissue swe lling. IMPRESSION: Minimally displaced fracture of the fifth metacarpal shaft. Reviewed by: Maureen Nash MD on 10/12/2023 3:34 PM [place] Approved by: Maureen Nash MD on 10/12/2023 3:34 PM [place] Station ID: [id number]
== END 2023-10-12 11:48 | disposition home or self-care (01) ==
LOC: DI.N 11:47
PROVIDERS: ATTEND Physician Assistant
DX: S62.326A Displaced fracture of shaft of fifth metacarpal bone, right hand, initial encounter for closed fracture (principal)

== ENCOUNTER 2023-11-15 13:11 | Outpatient (CLI) | payer MEDICAID ==
--- NOTE | 2023-11-15 20:47 | XRAY Report ---
PROCEDURE: Foot 3+V RT (Weight Bearing) INDICATIONS: UNSPECIFIED SPRAIN OF RIGHT FOOT TECHNIQUE: 3 views of the foot were acquired. COMPARISON: Right foot radiographs 10/12/2023. FINDINGS: Bones: Minimally displaced oblique fracture of the distal 5th metatarsal shaft is again seen without significant change in alignment. Minimal healing changes are seen. Soft tissues: Soft tissue edema is seen at the dorsum of the foot. IMPRESSION: Minimally displaced distal 5th metatarsal shaft fracture again seen without significant change in ali gnment. Reviewed by: Thomas Marin MD on 11/15/2023 8:45 PM PDT Approved by: Thomas Marin MD on 11/15/2023 8:45 PM PDT Station ID: [id number]
== END 2023-11-15 13:12 | disposition home or self-care (01) ==
LOC: LAB.N 13:11 → DI.N 13:12
PROVIDERS: ATTEND Physician Assistant Surgical
DX: S92.351D Displaced fracture of fifth metatarsal bone, right foot, subsequent encounter for fracture with routine healing (principal)

== ENCOUNTER 2023-11-18 10:54 | Outpatient (CLI) | payer MEDICAID | END 2023-11-18 23:59 | disposition short-term general hospital (02) | LOC: EMS 10:54 | DX: R07.89 Other chest pain (principal); R20.0 Anesthesia of skin; R06.00 Dyspnea, unspecified | CPT/HCPCS: A0425; A0427; A0999 ==

== ENCOUNTER 2023-11-19 14:37 | Outpatient (CLI) | payer MEDICAID | END 2023-11-19 14:38 | disposition home or self-care (01) | LOC: LAB.N 14:37 | PROVIDERS: ATTEND Nurse Practitioner Family | DX: E03.8 Other specified hypothyroidism (principal) | CPT/HCPCS: 36415; 84443 ==

== ENCOUNTER 2023-12-06 15:33 | Outpatient (CLI) | payer MEDICAID ==
--- NOTE | 2023-12-06 22:47 | Ultrasound Report ---
PROCEDURE: Duplex Ext Veins Bilateral INDICATIONS: JOMAR Suazo TECHNIQUE: Real-time imaging, as well as color and pulse Doppler interrogation, were performed of the deep veins of both legs from the inguinal ligament to the popliteal fossa. Attempted visualization of the calf veins was performed. COMPARISON: None FINDINGS: The deep veins are normally compressible, and free of intraluminal thrombus. Color and pu lse Doppler demonstrate normal phasic intravascular flow. There is normal augmentation response to d istal compression maneuver. A popliteal cyst is seen in right popliteal fossa measures 4 x 1.7 x 1.4 cm in size. A popliteal cyst is also seen in left popliteal fossa measures 4.2 x 1.7 x 3.8 cm in size. IMPRESSION: No deep venous thrombosis of the visualized lower extremities. Bilateral popliteal cysts as above. Reviewed by: Joseluis Liang MD on 12/06/2023 10:46 PM PDT Approved by: Joseluis Liang MD on 12/06/2023 10:46 PM PDT Station ID: [id number]
--- NOTE | 2023-12-06 22:49 | Ultrasound Report ---
PROCEDURE: Ankle Brachial Index INDICATIONS: BILATERAL LEG PAIN TECHNIQUE: Ankle-brachial indices were obtained bilaterally and recorded. COMPARISONS: None. FINDINGS: Right ankle brachial index (GREG): 0.97 Left ankle brachial index (GREG): 0.97 Healing potential: Ankle pressures >55 mm Hg in non-diabetics and >80 mm Hg in diabetics are likely to achieve primary h ealing of ischemic foot ulcers. Toe pressures >30 mm Hg are likely to achieve primary healing of ischemic foot ulcers, toe or transme tatarsal amputations. IMPRESSION: Normal bilateral ankle brachial index. Please note that ankle brachial index can be falsely elevated in the case of significant atherosclero tic disease. Reviewed by: Joseluis Liang MD on 12/06/2023 10:48 PM PDT Approved by: Joseluis Liang MD on 12/06/2023 10:48 PM PDT Station ID: [id number]
--- NOTE | 2023-12-07 17:23 | Ultrasound Report ---
PROCEDURE: Arterial Duplex Lwr Ext BL INDICATIONS: BILATERAL LEG PAIN TECHNIQUE: Color and pulse Doppler interrogation was performed of both lower extremity arterial systems, with im age documentation. COMPARISON: None FINDINGS: Limited exam secondary to body habitus and diminutive vessels. Right lower extremity: Common femoral artery: 122 cm/sec, with biphasic flow. Deep femoral artery: 71 cm/sec, with triphasic flow. Proximal superficial femoral artery: 91 cm/sec, with biphasic flow. Mid superficial femoral artery: 110 cm/sec, with biphasic flow. Distal superficial femoral artery: 70 cm/sec, with biphasic flow. Popliteal artery: 52 cm/sec, with biphasic flow. Posterior tibial artery: 69 cm/sec, with biphasic (above baseline) flow. Anterior tibial artery/dorsalis pedis: 52/63 cm/sec, with biphasic/triphasic flow. Nj-scale imaging description: No significant atherosclerotic plaque. Left lower extremity: Common femoral artery: 124 cm/sec, with triphasic flow. Deep femoral artery: 73 cm/sec, with triphasic flow. Proximal superficial femoral artery: 92 cm/sec, with biphasic flow. Mid superficial femoral artery: 111 cm/sec, with triphasic flow. Distal superficial femoral artery: 72 cm/sec, with biphasic flow. Popliteal artery: 57 cm/sec, with biphasic flow. Posterior tibial artery: 57 cm/sec, with biphasic flow. Anterior tibial artery/dorsalis pedis: 58/42 cm/sec, with biphasic flow. Nj-scale imaging description: No significant atherosclerotic plaque. IMPRESSION: Limited exam secondary to body habitus and diminutive vessels. Bilateral lower extremity arterial vasculature demonstrates multiphasic waveforms with no velocity sh ift to suggest a hemodynamically significant stenosis. Reviewed by: Ayleen Babb MD on 12/07/2023 5:21 PM PDT Approved by: Ayleen Babb MD on 12/07/2023 5:21 PM PDT Station ID: [id number]
== END 2023-12-06 15:34 | disposition home or self-care (01) ==
LOC: DI 15:33
PROVIDERS: ATTEND Nurse Practitioner Family
DX: M71.22 Synovial cyst of popliteal space [Baker], left knee (principal); M71.21 Synovial cyst of popliteal space [Baker], right knee; G62.9 Polyneuropathy, unspecified; I10 Essential (primary) hypertension; F17.210 Nicotine dependence, cigarettes, uncomplicated; E78.5 Hyperlipidemia, unspecified
CPT/HCPCS: 93922; 93925; 93970